=== PATIENT | male | born 1965 | race Caucasian/White ===

== ENCOUNTER → 2021-09-19 | Outpatient (CLI) | payer BC ==
[2021-09-19 08:24] VITALS: BP 136/84; PULSE 71; RESP 18; TEMP 98.2
--- NOTE | 2021-09-19 08:33 | P.CON ---
Consult Note - . Consult date: 09/19/21 Assessment/Plan:: HISTORY OF PRESENT ILLNESS: 56 year old male as a for referral from Dr Keating with lumbar pain due to degenerative disc disease, disc bulges, spinal stenosis and facet arthropathy presents today for a pain evaluation. Patient states that his pain is primarily in his lower lumbar spine and tailbone area 6 out of 10 in intensity but with activity elevates to 8 out of 10 intensity with radiation of pain to the buttocks bilaterally and alternating left lower extremity and right lower extremity. Patient states he has had lower lumbar pain for years, and that it feels like a dull achy tight pressure type of pain in his lower lumbar spine. It is provoked with bending lifting. It is alleviated with medications, topical, injections, ice, heat, physical therapy 3 years ago, chiropractic treatments, massage therapy, repositioning and rest. PMH: Asthma PSH: Dozens of epidurals and facet blocks medial branches over the years at Dr. Lloyd's office and [facility], right carpal tunnel release, right biceps tendon repair, rhinoplasty with SMR SH: Negative 3 FH: Noncontributory All: NKDA Meds: Celebrex, Robaxin, Biofreeze gel REVIEW OF ORGAN SYSTEMS: CONSTITUTIONAL: No fevers or chills. No recent weight loss. HEENT: No visual acuity loss, eye pain, difficulties with hearing. No nosebleeds. No difficulty swallowing. RESPIRATORY: Denies any troubles with breathing or dyspnea on exertion. CARDIOVASCULAR: Denies any chest pain, palpitations, or recent heart attacks. GASTROINTESTINAL: Denies fatty food intolerance. Has change in bowel habits and gas bloat. GENITOURINARY: Denies any blood in urine. Has increased urinary frequency. NEUROLOGICAL: + numbness and tingling along the distal extremities. No seizure disorders or headaches. MUSCULOSKELETAL: + back pain SKIN: No skin cancer. No rash. PSYCHIATRIC: Denies current depression or suicidal thoughts. ENDOCRINE: Denies current thyroid disorders. Denies any blood sugar glucose intolerance. HEME/LYMPHATIC: Denies any lumps and bumps around the neck. History of deep venous thrombosis. ALLERGY/IMMUNOLOGY: No immunoglobulin therapy. No immune deficiencies. BREAST: Denies current breast lumps, pain or nipple discharge. Physical Examinations : Constitutional : Cooperative , not in acute distress . HEENT: Neck supple. No Lymphadenopathy. Normal thyroid size . Eyes no ptosis , no icterus, no photophobia . Hearing intact. Normal oropharynx. No Thrush. Respiratory : Chest clear to auscultations bilaterally. No wheezing. No rhonchi. Cardiovascular : Regular rate and rhythm , S1 / S2. No S3 . No S4. Gastrointestinal : Abdomen soft. No tenderness. Bowel sounds x 4. No organomegaly . Genitourinary : Deferred. Neurologic : Cranial nerve II to XII intact. No focal neurological deficits. Psychiatric : alert & oriented x 3. Matching mood & appropriate affect. Judgment & insight intact. Lymphatic No Lymphadenopathy. Musculoskeletal : Cervical Spine Motor strength in the deltoid and biceps: Normal right side. Normal Left side Motor strength biceps and the wrist extensors: Normal right side . Normal left side Motor strength in the triceps muscle: Normal right side. Normal left side Deep tendon reflexes: Normal at the biceps. Normal at Brachioradialis. Normal at triceps Cervical facet loading test: positive bilaterally Spurling test: positive bilaterally Neck distraction test: positive bilaterally Liliya sign: positive bilaterally Lumbar spine Motor strength lower extremities ,thigh and legs 5/5 Right side , 5/5 Left side Deep tendon reflexes : Normal Knee Jerk. Normal Ankle Jerk Lumbar facet Loading Test: positive Right / positive Left over L2-S1 bilaterally Range of motion of the lumbar spine Flexion <90 degrees, extension 10 degrees Straight Leg Raise test: Left/ Right positive at 30 degree Dominga test: positive right / positive left. Moderate tenderness over the Sacroiliac joint on the Right / Left sides Gaenslen test: positive bilaterally Seated flexion test: positive bilaterally. Assessment/ Plan : Recommendation bilateral L3 - L5 RFA Due to the extensive degenerative disc disease spinal stenosis and facet arthropathy, patient may benefit from RFA of higher sites along the lumbar spine for sufficient pain relief Risks benefits of procedure discussed and patient verbalized understanding Denies aspirin or anticoagulant use All questions answered I have spent greater than 50 minutes on patient care today. Dr Muñoz was available by phone for the evaluation of this patient. The time was used to review the medical records including relevant urine studies and Prescription history (MAPs), review of the available imaging, evaluation and examination of the patient, coordination of care with the medical staff and if applicable referring physicians, as well as creation of the medical record PQRS Measure Charge Sheet Mode of Arrival: Ambulatory - Pain Location Lower Back Non-Pharmacological Interventions: Chiropractic Treatment, Heat, Ice, Inactivity, Massage, Physical Therapy, Position/Reposition, Stretching Pharmacological Interventions: PRN Medication, Topical Medication PQRS Narrative: Blood Pressure 136/84 Pain Intensity [Lower Back] 6 Scale Used Numeric (1 - 10) Hx Alcohol Use (MH) No Home Medications: Ambulatory Orders Celecoxib [CeleBREX] 200 mg PO BID 09/11/21
== END ==
LOC: PNWHC3 07:24
PROVIDERS: ATTEND Physician Assistant Medical
DX: M51.36 Other intervertebral disc degeneration, lumbar region (principal); M51.26 Other intervertebral disc displacement, lumbar region; M48.061 Spinal stenosis, lumbar region without neurogenic claudication; J45.909 Unspecified asthma, uncomplicated
CPT/HCPCS: 99211

== ENCOUNTER 2021-11-29 06:31 | Day surgery (SDC) | payer BC ==
[2021-11-28 10:30] VITALS: BMI 30.8
[~2021-11-29 06:31] MED LIST: LIDOCAINE 1% (10MG/ML) FOR IV START INTRADERMA PRN
[2021-11-29 06:56] VITALS: TEMP 97.7
[2021-11-29] MEDS: LACTATED RINGERS 1,000 ML IV SCH ×2 (07:04→08:00)
[2021-11-29] MEDS ORDERED: LACTATED RINGERS 1,000 ML IV ONE (07:21)
[2021-11-29] MEDS ORDERED: fentaNYL (PF) 50 MCG/ML 2 ML AMP ONE (07:23)
[2021-11-29] MEDS ORDERED: methylPREDNISolone ACETATE 40 MG/ML 1 ML VIAL ONE (07:23)
[2021-11-29] MEDS ORDERED: MIDAZOLAM 2 MG/2 ML VIAL ONE (07:23)
[2021-11-29] MEDS ORDERED: ROPIVACAINE 5MG/ML 20ML VIAL ONE (07:23)
--- NOTE | 2021-11-29 07:55 | P.PCN ---
Date of Procedure: 11/29/21 Procedure(s) Performed: PREOPERATIVE DIAGNOSIS: 1-Lumbar Spondylosis with Facet Arthropathy without myelopathy. 2- Lumber degenerative disc disease. POSTOPERATIVE DIAGNOSIS: 1- Lumbar Spondylosis with Facet Arthropathy without myelopathy. 2- Lumber degenerative disc disease. PROCEDURES : Bilateral Radiofrequency thermocoagulation, L3 , L4 , and L5 medial branch, with fluoroscopic guidance (fluoroscopy images available in the radiology department) ( to denervate the facet joint at bilateral L4-5 ,and L5-S1 levels ). ANESTHESIA: Monitored anesthesia care as per anesthesia department . EBL: Minimal PROCEDURE INDICATION: The patient with low back pain secondary to lumbar facet arthropathy who had more than 50% relief of her pain with previous diagnostic lumbar medial branch block with bupivacaine. PROCEDURE DESCRIPTION / TECHNIQUE: The patient was seen and identified in the preoperative area. Risks, benefits, complications, including but not limited to risk of infection ,bleeding , allergic reactions to the medications and no complete pain releife , and alternatives were discussed with the patient, the patient agreed to proceed with the procedure and signed the consent. IV was started. Vital signs remained stable throughout the procedure. Patient was taken to the OR and time out was completed. The patient was placed in the prone position on the procedure table. The lumber area was prepped and draped in the usual sterile fashion. . Vital signs were closely monitored during the procedure .IV sedation was used during the procedure to decrease patients anxiety. Using AP and then oblique fluoroscopy, the ``eye of the Paulino dog vanessa esponding to the connection between the superior and transverse articular processes of right L3, L4, and L5 were identified, marked, and localized with 1% lidocaine. Subsequently, a 18 -ue radiofrequency cannula with a 10- mm active tip was advanced guided by fluoroscopy to each of the``eyes of the Paulino dog at right L3, L4, and L5. Each site then underwent sensory testing at 50 Hz and 0 to 1 volt and motor testing at 2.5 Hz and 0 to 3 volt with local stimulation, but no radicular symptoms down the legs. Thereafter each sites underwent radiofrequency thermocoagulation at 80 degrees celsius for 90 seconds after injecting 0.5 ml of PF Ropivacaine 1ml, then after the thermocoagulation done , 1 ml of the block solution containing Depo-Medrol 20 mg and 3 ml of Ropivacaine 0.5% was injected at the right L3 , L4 , and L5 , levels after negative aspiration of CSF and blood and with no paresthesias. Cannulas were retracted while injecting lidocaine 1% until the needle is out. The same procedure was repeated at the level of Left L3, L4, and L5 levels. At the end of the procedure, the skin was cleansed and bandages were applied. COMPLICATIONS: No acute complications. DISPOSITION / PLANS: The patient was placed in a supine position and transferred to the recovery area in a stable condition for observation and was discharged from the recovery room after meeting discharge criteria. Home discharge instructions given to the patient by the staff. The patient was reexamined prior to discharge. The patient will schedule a follow up in the clinic in 2-4 weeks.
[2021-11-29] MEDS ORDERED: IV FLUID CONTINUATION 1,000 ML IV ONE (08:00)
[2021-11-29 08:03] VITALS: RESP 16
--- NOTE | 2021-11-29 08:03 | FL ---
EXAMINATION TYPE: FL guided pain mgmt statistic DATE OF EXAM: 11/29/2021 CLINICAL HISTORY: Low back pain. TECHNIQUE: Fluoroscopy. COMPARISON: None. FINDINGS: Fluoroscopic guidance was provided during pain relief procedure performed by Dr. Muñoz . A total of 20 seconds of fluoroscopic time was utilized during the procedure and 6 spot images are acquired. Images acquired shows needle localization at several levels in the lower lumbar spine. IMPRESSION: As Above.
[2021-11-29 08:15] VITALS: BP 117/84; PULSE 66
== END 2021-11-29 08:30 | disposition home or self-care (01) ==
LOC: ORPAIN 06:31
PROVIDERS: ATTEND Specialist
DX: M47.816 Spondylosis without myelopathy or radiculopathy, lumbar region (principal); M51.36 Other intervertebral disc degeneration, lumbar region
CPT/HCPCS: 64635; 64636; J2250; J1030; J3010; J2795

== ENCOUNTER → 2021-12-16 | Outpatient (CLI) | payer BC ==
[2021-12-16 07:54] VITALS: BP 121/80; PULSE 76; RESP 18
--- NOTE | 2021-12-16 07:57 | P.PN ---
Subjective Progress Note Date: 12/16/21 Principal diagnosis: A 56 yr old male with a history of severe and chronic low back pain secondary to lumbar degenerative disc diseases and lumbar spondylosis with facet arthropathy presents today for evaluation status post bilateral RFA L4-L5, L5- S1. Pt states he experienced 75% pain relief status post procedure and no longer has any lower extremity shooting pain. Pain level is currently at etc. out of 10 in intensity, sharp achy pain in the mid to lower aspects of his l umbar spine but occasionally elevates to 9 out of 10 in intensity with standing for periods of 30 minutes, laying or inactivity. Pain is alleviated with medications, topicals, injections, physical therapy in 2019, chiropractic treatments in 2020 which provided no relief, daily home stretching regimen, massage therapy in the past which provided temporary relief and rest. Interventional pain procedures completed include bilateral RFA L3-5 Patient is currently on Celebrex from Dr. Keating Patient denies any side effects of the medication(s), denies excessive drowsiness or sleepiness, denies suicidal ideation and reports that the current pain medication is helping to control the pain and improve activities of daily living. Patient denies any motor or sensory deficits. Patient denies any fever or night sweats, denies any change in the bowel movements or urination. Physical Examination: -Constitutional: Cooperative. Not in acute distress . -HEENT: Neck is supple. No lymphadenopathy. No thyromegaly. Normal thyroid size. Eyes: No ptosis , no icterus, no photophobia. ENT: No auditory deficits. Normal oropharynx. No Thrush. - Respiratory: Chest clear to auscultations bilaterally. No wheezing. No rhonchi. - Cardiovascular: Regular rate and rhythm. S1 / S2 , no S3 , no S4. - Gastrointestinal: Abdomen soft no tenderness. Bowel sounds positive in all four quadrants. No organomegaly. - Genitourinary: Deferred. - Neurologic: Cranial nerve II to XII intact. No focal neurological deficits. - Psychatric: Alert & oriented x 3. Matching mood & appropriate affect. Judgment and insight intact. - Lymphatic: No Lymphadenopathy. - Musculoskeletal: Cervical spine: Muscle bulk/ tone/ strength in the bilateral upper extremities normal. Facet loading test cervical area positive. Lumbar spine: Motor bulk/ tone/ strength lower extremities , thigh and legs : 5/5 Deep tendon reflexes : Normal Knee Jerk. Normal Ankle Jerk . Vertebral body tenderness to palpation over L4 Lumbar Facet Loading Test positive Straight Leg Raise: positive at 30 degrees right side/ left side Gaenslen's Test positive Sacral spine : Severe tenderness over the Sacroiliac joint: right side / left side Range of motion: Flexion of the lumbar spine <60 degrees Range of motion: Extension of the lumbar spine <20 degrees Gaenslen's Test positive Dominga test: positive right side / left side Assessment and plan: Chronic low back pain secondary to lumbar degenerative disc disease , lumbar spondylosis with facet arthropathy without myelopathy Recommendation of IRMA L4-L5 #1. May need a series of injections, up to 3 within a six-month period, for optimal pain relief. Risks, benefits of procedure discussed and patient verbalized understanding. Denies anticoagulant use or medical history of diabetes. All patient questions answered MAPS reviewed and it was appropriate. I have spent 31 minutes on patient care today. Dr Muñoz was available by phone for the evaluation of this patient. The time was used to review the medical records including relevant urine studies and Prescription history (MAPs), review of the available imaging, evaluation and examination of the patient, coordination of care with the medical staff and if applicable referring physicians, as well as creation of the medical record Objective - Vital Signs Vital signs: Vital Signs Temp Pulse 76 12/16/21 07:48 Resp 18 12/16/21 07:48 BP 121/80 12/16/21 07:48 Pulse Ox 93 L 12/16/21 07:48 PQRS Measure Charge Sheet Mode of Arrival: Ambulatory - Pain Location Lower Back Non-Pharmacological Interventions: Chiropractic Treatment, Exercise, Home Exercise, Massage, Physical Therapy, Position/Reposition, Stretching Pharmacological Interventions: Block, PRN Medication PQRS Narrative: Blood Pressure 121/80 Pain Intensity [Lower Back] 6 Scale Used Numeric (1 - 10) Hx Alcohol Use (MH) No Home Medications: Ambulatory Orders Celecoxib [CeleBREX] 200 mg PO BID PRN 09/11/21
== END ==
LOC: PNWHC3 07:32
PROVIDERS: ATTEND Specialist
DX: M51.36 Other intervertebral disc degeneration, lumbar region (principal); M47.816 Spondylosis without myelopathy or radiculopathy, lumbar region; G89.29 Other chronic pain
CPT/HCPCS: 99211

== ENCOUNTER 2022-01-14 05:56 | Day surgery (SDC) | payer BC ==
[2022-01-10 11:44] VITALS: BMI 32.4
[2022-01-14] MEDS ORDERED: LIDOCAINE 1% (10MG/ML) FOR IV START INTRADERMA PRN (06:04)
[2022-01-14] MEDS ORDERED: LACTATED RINGERS 1,000 ML IV SCH (06:04)
[2022-01-14 06:24] VITALS: RESP 18; TEMP 97.5
[2022-01-14] MEDS ORDERED: LACTATED RINGERS 1,000 ML IV ONE (06:24)
[2022-01-14] MEDS ORDERED: IOPAMIDOL M200 10 ML VIAL ONE (07:02)
[2022-01-14] MEDS ORDERED: methylPREDNISolone ACETATE 80 MG/ML 1 ML VIAL ONE (07:02)
[2022-01-14] MEDS ORDERED: fentaNYL (PF) 50 MCG/ML 2 ML AMP ONE (07:02)
[2022-01-14] MEDS ORDERED: MIDAZOLAM 2 MG/2 ML VIAL ONE (07:02)
--- NOTE | 2022-01-14 07:22 | P.PCN ---
Date of Procedure: 01/14/22 Procedure(s) Performed: PREOPERATIVE DIAGNOSIS: 1- Lumbar Degenerative Disc Diseases 2-Lumbar spondylosis with Facet arthropathy without myelopathy POSTOPERATIVE DIAGNOSIS: Same as preop diagnosis. PROCEDURE 1. Lumbar epidural steroid injection under fluoroscopic guidance at the L5-S1 level. (Fluoroscopy imaging was available in radiology department) 2. Lumbar epidurogram. ANESTHESIA: Local with 1% lidocaine 3 ml and , moderate sedation with intravenous Versed 2 mg ,and fentanyle 100 Mcg EBL: Minimal PROCEDURE INDICATION: The patient with low back pain and radiculitis symptoms unresponsive to conservative treatment. Fluoroscopy was used to optimize visuali zation of the needle placement and to maximize safety. PROCEDURE DESCRIPTION / TECHNIQUE: The patient was seen and identified in the preoperative area. Risks, benefits, complications including but not limited to infections ,bleeding ,allergic reaction to the medications ,nerve damage and not complete pain releife , and alternatives were discussed with the patient. The patient agreed to proceed with the procedure and signed the consent. IV was started, and vital signs were stable. Patient was taken to the OR and time out was completed. The patient was placed in the prone position on procedure table and a pillow was placed under the abdomen to reduce lumbar lordosis. The lumbosacral area was prepped and draped in the usual sterile fashion.ere closely monitored during the procedure. Conscious sedation was used during the procedure to decrease patients anxiety. Vital signs was monitered during the entire procedure. Using anterior-posterior fluoroscopy, the L5-S1 interlaminar space was identified and the skin over this site was marked and then infiltrated with 1% lidocaine subcutaneously. Subsequently, a 18-gauge Tuohy epidural needle was inserted and advanced toward the epidural space using the ``Loss of resistance technique and guided by AP and lateral fluoroscopy. The correct needle position in the epidural space was verified with the injection of 2 mL of the water latricia uble contrast dye Isovue 200 contrast and observing an excellent epidurogram with the epidural spread of the dye, after negative aspiration for blood and CSF and in the absence of paresthesias. Again after negative aspiration, a 6 ml mixture containing 80 mg of Depo-medrol , and 2 ml of preservative free Normal Saline, and 2 ml of preservative free lidocaine 1% solution was injected and a washout of epidurogram was seen. Needle was withdrawn intact, skin was cleansed, and bandages were applied. COMPLICATIONS: None DISPOSITION / PLANS: The patient was placed in a supine position and transferred to the recovery area in a stable condition for observation. There was no evidence of lower extremity motor or sensory deficit after the procedure. Patient was discharged from the recovery room after meeting discharge criteria. Home discharge instructions were given to the patient by the staff. The patient was reexamined prior to discharge. The patient will schedule a follow up in the clinic in 2-4 weeks. note= multiple attempts done with the procedure at L4 5 was not successful, he could not get loss of resistance at L4 5, for this reason the procedure was changed to L5-S1 levels, the epidural space at L4 5 was not accessible
[2022-01-14] MEDS ORDERED: IV FLUID CONTINUATION 1,000 ML IV ONE (07:25)
--- NOTE | 2022-01-14 07:30 | FL ---
EXAMINATION TYPE: FL guided pain mgmt statistic DATE OF EXAM: 01/14/2022 FLUOROSCOPY Fluoroscopy time of 17 seconds was used during lumbar epidural steroid injection. 2 image/s document /s the procedure.
[2022-01-14 07:49] VITALS: BP 119/83; PULSE 64
== END 2022-01-14 07:59 | disposition home or self-care (01) ==
LOC: ORPAIN 05:56
PROVIDERS: ATTEND Specialist
DX: M47.816 Spondylosis without myelopathy or radiculopathy, lumbar region (principal)
CPT/HCPCS: 62323; J2250; J1040; J3010; Q9966; 99152

== ENCOUNTER 2022-02-18 06:33 | Day surgery (SDC) | payer BC ==
[2022-02-12 15:32] VITALS: BMI 31.5
[~2022-02-18 06:33] MED LIST changes: +LACTATED RINGERS 1,000 ML IV SCH; -LIDOCAINE 1% (10MG/ML) FOR IV START INTRADERMA PRN
[2022-02-18 06:49] VITALS: TEMP 98
[2022-02-18] MEDS ORDERED: MIDAZOLAM 2 MG/2 ML VIAL ONE (07:32)
[2022-02-18] MEDS ORDERED: IOPAMIDOL M200 10 ML VIAL ONE (07:32)
[2022-02-18] MEDS ORDERED: fentaNYL (PF) 50 MCG/ML 2 ML AMP ONE (07:32)
[2022-02-18] MEDS ORDERED: TRIAMCINOLONE ACETONIDE 40 MG/ML 1 ML VIAL ONE (07:32)
[2022-02-18] MEDS ORDERED: ROPIVACAINE 5MG/ML 20ML VIAL ONE (07:32)
--- NOTE | 2022-02-18 07:49 | P.PCN ---
Date of Procedure: 02/18/22 Surgeon: Meg Lambert Pathology: none sent Condition: stable Disposition: PACU Description of Procedure: PREOPERATIVE DIAGNOSIS: 1-Lumbar radiculopathy 2- Lumber Degenerative Disc Diseases. POSTOPERATIVE DIAGNOSIS: 1-Lumbar radiculopathy. 2-Lumbar Degenerative Disc Diseases PROCEDURE 1. Lumbar epidural steroid injection under fluoroscopic guidance at the L5-S1 level. 2. Lumbar epidurogram. ANESTHESIA: Local with 1% lidocaine; and IV moderate conscious sedation with Versed and fentanyl EBL: Minimal PROCEDURE INDICATION: The patient with low back pain and radiculitis symptoms unresponsive to conservative treatment. Fluoroscopy was used to optimize visualization of the needle placement and to maximize safety. PROCEDURE DESCRIPTION / TECHNIQUE: The patient was seen and identified in the preoperative area. Risks, benefits, complications including but not limited to infections ,bleeding ,allergic reaction to the medications ,nerve damage and not complete pain relief , and alt ernatives were discussed with the patient. The patient agreed to proceed with the procedure and signed the consent. IV was started, and vital signs were stable. Patient was taken to the OR and time out was completed. The patient was placed in the prone position on procedure table and a pillow was placed under the abdomen to reduce lumbar lordosis. The lumbosacral area was prepped and draped in the usual sterile fashion with ChloraPrep.Patient was closely monitored during the procedure. Conscious sedation was used during the procedure to decrease patients anxiety. Vital signs were monitered during the entire procedure. Using anterior-posterior fluoroscopy, the L4-5 interlaminar space was identified and the skin over this site was marked and then infiltrated with 1% lidocaine subcutaneously. Subsequently, a 20-gauge Tuohy epidural needle was inserted and advanced toward the epidural space using the Loss of resistance to air technique and guided by AP and lateral fluoroscopy. The correct needle position in the epidural space was verified with the injection of 1 mL of the water soluble contrast dye Omnipaque 180 contrast and observing an excellent epidurogram with the epidural spread of the dye, after negative aspiration for blood and CSF and in the absence of paresthesias. Again after negative aspiration, a 8 ml mixture containing 40 mg of Kenalog and 5 ml of preservative free Normal Saline, and 2 ml of preservative free Ropivacaine 0.5% solution was injected and a washout of epidurogram was seen. Needle was withdrawn intact, skin was cleansed, and bandages were applied. patient tolerated procedure well and was transferred to PACU in stable condition.A copy of the needle placement picture was saved to the fluoroscopy machine. COMPLICATIONS: None
[2022-02-18] MEDS ORDERED: IV FLUID CONTINUATION 800 ML IV ONE (07:50)
[2022-02-18] MEDS ORDERED: LACTATED RINGERS 1,000 ML IV ONE (07:50)
[2022-02-18 07:55] VITALS: PULSE 68; RESP 16
[2022-02-18 08:10] VITALS: BP 116/63
--- NOTE | 2022-02-18 09:15 | FL ---
EXAMINATION TYPE: FL guided pain mgmt statistic DATE OF EXAM: 02/18/2022 FLUOROSCOPY Fluoroscopy time of the seconds was used during back pain, lumbar spine pain intervention procedure. 0 image/s document/s the procedure.
== END 2022-02-18 08:20 | disposition home or self-care (01) ==
LOC: ORPAIN 06:33
PROVIDERS: ATTEND Anesthesiology
DX: M51.16 Intervertebral disc disorders with radiculopathy, lumbar region (principal)
CPT/HCPCS: 62323; J2250; J3301; J3010; Q9966; J2795; 99152

== ENCOUNTER → 2022-03-06 | Outpatient (CLI) | payer BC ==
[2022-03-06 08:46] VITALS: BP 131/83; PULSE 69; RESP 18; TEMP 98.2
--- NOTE | 2022-03-06 08:49 | P.PAINPG ---
PQRS Measure Charge Sheet Comment: A 57 yr old male with a history of severe and chronic low back pain secondary to lumbar degenerative disc diseases and lumbar spondylosis with facet arthropathy presents today for evaluation s/p LESI L5-S1. He states he experienced 20% pain relief x 14 days s/p procedure. Pain level is currently at 5/10 in intensity, constant, dull/ achy in the lower aspects of the lumbar spine with radiation of pain down the BLEs. Pain is provoked as high as 9/10 in intensity w inactivity. Pain is alleviated with medications (Celebrex, Robaxin), injections, PT in 2019, chiropractic she was in the past, home stretching regimen, repositioning and rest. Interventional pain procedures completed include BL RFA L3-L5, LESI L4-L5, L5-S1 Patient is currently on Celebrex, Robaxin Patient denies any side effects of the medication(s), denies excessive drowsiness or sleepiness, denies suicidal ideation and reports that the current pain medication is helping to control the pain and improve activities of daily living. Patient denies any motor or sensory deficits. Patient denies any fever or night sweats, denies any change in the bowel movements or urination. Physical Examination: -Constitutional: Cooperative. Not in acute distress . - Neurologic: Cranial nerve II to XII intact. No focal neurological deficits. - Psychatric: Alert & oriented x 3. Matching mood & appropriate affect. Judgment and insight intact. - Musculoskeletal: Cervical spine: Muscle bulk/ tone/ strength in the bilateral upper extremities normal Vertebral body tenderness to palpation over Spurling test positive Distraction test positive Facet loading test positive Thoracic spine Muscle bulk / tone/ strength in the bilateral paraspinal muscles normal Vertebral body tender to palpation over Facet loading test positive Lumbar spine: Motor bulk/ tone/ strength lower extremities , thigh and legs : 5/5 Deep tendon reflexes : Normal Knee Jerk. Normal Ankle Jerk . Vertebral body tenderness to palpation over L4, L5 Lumbar Facet Loading Test positive Straight Leg Raise: positive at 30 degrees right side/ left side Gaenslen's Test positive Sacral spine : Severe tenderness over the Sacroiliac joint: right side / left side Range of motion: Flexion of the lumbar spine <60 degrees Range of motion: Extension of the lumbar spine <20 degrees Gaenslen's Test positive Caleb's Test positive Dominga test: positive right side / left side Thigh Thrust Test Sacral Thrust Test Assessment and plan: Chronic low back pain secondary to lumbar degenerative disc disease , lumbar spondylosis with facet arthropathy without myelopathy Recommendation of SUSHILI L4-L5 #2. May be a series of injections, up to 4 within a one-year period, for optimal pain relief. Risks, benefits of procedure discussed and pt verbalized understanding. Denies anticoagulant use or medical history of diabetes. All patient questions answered MAPS reviewed and it was appropriate. I have spent less than 30 minutes on patient care today. Dr Muñoz was available by phone for the evaluation of this patient. The time was used to review the medical records including relevant urine studies and Prescription history (MAPs), review of the available imaging, evaluation and examination of the patient, coordination of care with the medical staff and if applicable referring physicians, as well as creation of the medical record PQRS Narrative: Hx Alcohol Use (MH) No Home Medications: Ambulatory Orders Celecoxib [CeleBREX] 200 mg PO BID PRN 09/11/21 Controlled Substance Measures - Controlled Substance Measures Is patient prescribed a controlled substance at discharge?: No
== END ==
LOC: PNWHC3 07:56
PROVIDERS: ATTEND Specialist
DX: M51.36 Other intervertebral disc degeneration, lumbar region (principal); M47.816 Spondylosis without myelopathy or radiculopathy, lumbar region; G89.29 Other chronic pain
CPT/HCPCS: 99211

== ENCOUNTER 2022-04-17 06:58 | Day surgery (SDC) | payer BC ==
[2022-04-16 13:05] VITALS: BMI 31.5
[~2022-04-17 06:58] MED LIST changes: +LIDOCAINE 1% (10MG/ML) FOR IV START INTRADERMA PRN
[2022-04-17 07:32] VITALS: TEMP 97
[2022-04-17] MEDS ORDERED: IOPAMIDOL M200 10 ML VIAL ONE (07:48)
[2022-04-17] MEDS ORDERED: methylPREDNISolone ACETATE 80 MG/ML 1 ML VIAL ONE (07:48)
[2022-04-17] MEDS ORDERED: LACTATED RINGERS 1,000 ML IV SCH (08:15)
--- NOTE | 2022-04-17 08:17 | P.PCN ---
Date of Procedure: 04/17/22 Description of Procedure: Procedure: 1. L4-L5 Epidural steroid injection under fluoroscopic guidance #2 out of 3, 2. Lumbar epidurogram PREOPERATIVE DIAGNOSIS: Lumbar degenerative disc disease, and Lumbar radiculopathy. POSTOPERATIVE DIAGNOSIS: Lumbar degenerative disc disease, and Lumbar rad iculopathy. SURGEON: Portia Santillan ANESTHESIA: Local with 1% lidocaine, and IV sedation : None EBL: None. Specimen removed: None Fluoroscopic image: saved to electronic medical records PROCEDURE INDICATION: The patient had history of Lumbar degenerative disc disease and Lumbar radiculopathy. Failed to conservative therapy. Presented for epidural steroid injection. PROCEDURE DESCRIPTION: The patient was seen and identified in the preoperative area. Risks, benefits, complications, and alternatives were discussed with the patient. The patient agreed to proceed with the procedure and signed the consent. IV was started, and vital signs were stable. Patient was taken to the procedure area, and time out was completed. The patient was placed in the prone position on procedure table and a pillow was placed under the abdomen to reduce lumbar lordosis. The lumbosacral area was prepped and draped in the usual sterile fashion. Critical pause was taken. Vital signs were closely monitored during the procedure. Using anterior-posterior fluoroscopy, the L4-L5 interlaminar space was identified, and skin and deeper tissues were localized with 1% lidocaine. Using anterior-posterior fluoroscopy, lateral fluoroscopy, and ddra-kb-tiwjxcfuiw technique, a 20 gauge 3.5 Tuohy epidural needle entered the epidural space. After negative aspiration of CSF and blood with no paresthesias, 2 ml of [id number] contrast dye was injected and an excellent epidurogram was seen. Again after negative aspiration of CSF and blood with no paresthesias, 10 mL of block solution was injected into the epidural space. Block solution contained 80 mg of Depo-Medrol, and 9 mL of preservative-free normal saline. Needle was withdrawn intact, skin was cleansed, and bandages were applied. COMPLICATIONS: None. DISPOSITION / PLANS: The patient was placed in a supine position and transferred to the recovery area in a stable condition for observation. Patient was discharged from the recovery room after meeting discharge criteria. Home discharge instructions given to the patient by the staff. The patient was reexamined prior to discharge. The patient will schedule a follow up in the clinic in 4 weeks.
[2022-04-17 08:22] VITALS: RESP 15
[2022-04-17 08:35] VITALS: BP 124/88; PULSE 60
--- NOTE | 2022-04-17 08:39 | FL ---
EXAMINATION TYPE: FL guided pain mgmt statistic DATE OF EXAM: 04/17/2022 CLINICAL HISTORY: Low back pain. TECHNIQUE: Fluoroscopy. COMPARISON: None. FINDINGS: Fluoroscopic guidance was provided during pain relief procedure performed by Dr. Muñoz . A total of 19.2 seconds of fluoroscopic time was utilized during the procedure and 3 spot images a re acquired. Images acquired shows needle localization in the lower lumbar spine. IMPRESSION: As Above.
== END 2022-04-17 08:48 | disposition home or self-care (01) ==
LOC: ORPAIN 06:58
DX: M51.16 Intervertebral disc disorders with radiculopathy, lumbar region (principal); M19.90 Unspecified osteoarthritis, unspecified site; Z79.899 Other long term (current) drug therapy
CPT/HCPCS: 62323; J1040; J2001; Q9966; 99152; 99153

== ENCOUNTER → 2022-05-12 | Outpatient (CLI) | payer BC ==
[2022-05-12 08:16] VITALS: BP 122/84; PULSE 68; RESP 18
--- NOTE | 2022-05-12 14:21 | P.PAINPG ---
Objective - Vital Signs Vital signs: Intake & Output 05/11/22 05/12/22 05/12/22 18:59 06:59 18:59 Weight 99.79 kg PQRS Measure Charge Sheet Comment: A 57 yr old male with a history of severe and chronic low back pain secondary to lumbar degenerative disc diseases and lumbar spondylosis with facet arthropathy without myelopathy presents today for RUCHI L4-L5 #3. Pt states he experienced 85% pain relief x 3 wks s/p procedure. Pain level is currently at 7 /10 in intensity, constant, localized in the lower lumbar spine, dull/ achy without radiation. Pain is provoked by being in one position for periods of 30 min or more. Pain is alleviated with PT 3 yrs ago, home guided exercises, chiropractic treatments every 2 wks 1 yr ago, heat, ice, meds (Celebrex, Biofreeze), sitting, walking, repositioning and rest. Interventional pain procedures completed include RUCHI L4-L5 x2, BL RFA L3-L5. Patient is currently on Celebrex, Biofreeze gel. Patient denies any side effects of the medication(s), denies excessive drowsiness or sleepiness, denies suicidal ideation and reports that the current pain medication is helping to control the pain and improve activities of daily living. Patient denies any motor or sensory deficits. Patient denies any fever or night sweats, denies any change in the bowel movements or urination. Physical Examination: -Constitutional: Cooperative. Not in acute distress . - Neurologic: Cranial nerve II to XII intact. No focal neurological deficits. - Psychatric: Alert & oriented x 3. Matching mood & appropriate affect. Judgment and insight intact. - Musculoskeletal: Cervical spine: Muscle bulk/ tone/ strength in the bilateral upper extremities normal Vertebral body tenderness to palpation over Spurling test positive Distraction test positive Facet loading test positive Thoracic spine Muscle bulk / tone/ strength in the bilateral paraspinal muscles normal Vertebral body tender to palpation over Facet loading test positive Lumbar spine: Motor bulk/ tone/ strength lower extremities , thigh and legs : 5/5 Deep tendon reflexes : Normal Knee Jerk. Normal Ankle Jerk . Vertebral body tenderness to palpation over Lumbar Facet Loading Test positive w paraspinal/ facet tenderness over BL L4-L5, L5-S1 Straight Leg Raise: positive at 30 degrees right side/ left side Gaenslen's Test positive Sacral spine : Severe tenderness over the Sacroiliac joint: right side / left side Range of motion: Flexion of the lumbar spine <60 degrees Range of motion: Extension of the lumbar spine <20 degrees Gaenslen's Test positive Caleb's Test positive Dominga test: positive right side / left side Thigh Thrust Test Sacral Thrust Test Assessment and plan: Chronic low back pain secondary to lumbar degenerative disc disease , lumbar spondylosis with facet arthropathy without myelopathy Recommendation of BL RFA L4-L5, L5-S1. Pt exhibited substantial pain relief w prior procedure. Risks, benefits of procedure discussed and pt verbalized understanding. Denies anticoagulant use or medical history of diabetes. All patient questions answered MAPS reviewed and it was appropriate. I have spent less than 30 minutes on patient care today. Dr Muñoz was available by phone for the evaluation of this patient. The time was used to review the medical records including relevant urine studies and Prescription history (MAPs), review of the available imaging, evaluation and examination of the patient, coordination of care with the medical staff and if applicable referring physicians, as well as creation of the medical record - Pain Location Bilateral Lower Back Non-Pharmacological Interventions: Chiropractic Treatment, Heat, Ice, Physical Therapy, Standing Pharmacological Interventions: Block, Epidural, PRN Medication, Topical Medication PQRS Narrative: Hx Alcohol Use (MH) No Home Medications: Ambulatory Orders Celecoxib [CeleBREX] 200 mg PO BID PRN 09/11/21 Controlled Substance Measures - Controlled Substance Measures Is patient prescribed a controlled substance at discharge?: No
== END ==
LOC: PNWHC3 07:50
PROVIDERS: ATTEND Specialist
DX: M51.36 Other intervertebral disc degeneration, lumbar region (principal); M47.816 Spondylosis without myelopathy or radiculopathy, lumbar region; G89.29 Other chronic pain
CPT/HCPCS: 99211

== ENCOUNTER 2022-06-20 06:09 | Day surgery (SDC) | payer BC ==
[2022-06-18 11:01] VITALS: BMI 31.5
[2022-06-20] MEDS ORDERED: LACTATED RINGERS 1,000 ML IV ONE ×2 (06:27)
[2022-06-20 06:38] VITALS: RESP 16; TEMP 98.5
[2022-06-20] MEDS ORDERED: MIDAZOLAM 2 MG/2 ML VIAL ONE (07:01)
[2022-06-20] MEDS ORDERED: methylPREDNISolone ACETATE 40 MG/ML 1 ML VIAL ONE (07:01)
[2022-06-20] MEDS ORDERED: ROPIVACAINE 5 MG/ML 20 ML AMPULE ONE (07:01)
[2022-06-20] MEDS ORDERED: fentaNYL (PF) 50 MCG/ML 2 ML AMP ONE (07:01)
--- NOTE | 2022-06-20 07:27 | P.PCN ---
Date of Procedure: 06/20/22 Procedure(s) Performed: PREOPERATIVE DIAGNOSIS: 1-Lumbar Spondylosis with Facet Arthropathy without myelopathy. 2- Lumber degenerative disc disease. POSTOPERATIVE DIAGNOSIS: 1- Lumbar Spondylosis with Facet Arthropathy without myelopathy. 2- Lumber degenerative disc disease. PROCEDURES : Bilateral Radiofrequency thermocoagulation, L3 , L4 , and L5 medial branch, with fluoroscopic guidance (fluoroscopy images available in the radiology department) ( to denervate the facet joint at bilateral L4-5 ,and L5-S1 levels ). ANESTHESIA: Monitored anesthesia care as per anesthesia department . EBL: Minimal PROCEDURE INDICATION: The patient with low back pain secondary to lumbar facet arthropathy who had more than 50% relief of her pain with previous diagnostic lumbar medial branch block with bupivacaine. PROCEDURE DESCRIPTION / TECHNIQUE: The patient was seen and identified in the preoperative area. Risks, benefits, complications, including but not limited to risk of infection ,bleeding , allergic reactions to the medications and no complete pain releife , and alternatives were discussed with the patient, the patient agreed to proceed with the procedure and signed the consent. IV was started. Vital signs remained stable throughout the procedure. Patient was taken to the OR and time out was completed. The patient was placed in the prone position on the procedure table. The lumber area was prepped and draped in the usual sterile fashion. . Vital signs were closely monitored during the procedure .IV sedation was used during the procedure to decrease patients anxiety. Using AP and then oblique fluoroscopy, the ``eye of the Paulino dog vanessa esponding to the connection between the superior and transverse articular processes of right L3, L4, and L5 were identified, marked, and localized with 1% lidocaine. Subsequently, a 18 [id number] radiofrequency cannula with a 10- mm active tip was advanced guided by fluoroscopy to each of the``eyes of the Paulino dog at right L3, L4, and L5. Each site then underwent sensory testing at 50 Hz and 0 to 1 volt and motor testing at 2.5 Hz and 0 to 3 volt with local stimulation, but no radicular symptoms down the legs. Thereafter each sites underwent radiofrequency thermocoagulation at 80 degrees celsius for 90 seconds after injecting 0.5 ml of PF Ropivacaine 1ml, then after the thermocoagulation done , 1 ml of the block solution containing Depo-Medrol 20 mg and 3 ml of Ropivacaine 0.5% was injected at the right L3 , L4 , and L5 , levels after negative aspiration of CSF and blood and with no paresthesias. Cannulas were retracted while injecting lidocaine 1% until the needle is out. The same procedure was repeated at the level of Left L3, L4, and L5 levels. At the end of the procedure, the skin was cleansed and bandages were applied. COMPLICATIONS: No acute complications. DISPOSITION / PLANS: The patient was placed in a supine position and transferred to the recovery area in a stable condition for observation and was discharged from the recovery room after meeting discharge criteria. Home discharge instructions given to the patient by the staff. The patient was reexamined prior to discharge. The patient will schedule a follow up in the clinic in 2-4 weeks.
[2022-06-20] MEDS ORDERED: IV FLUID CONTINUATION 800 ML IV ONE (07:31)
[2022-06-20 07:38] VITALS: PULSE 60
[2022-06-20] MEDS ORDERED: LIDOCAINE 1% (10MG/ML) FOR IV START INTRADERMA PRN (07:40)
[2022-06-20] MEDS ORDERED: LACTATED RINGERS 1,000 ML IV SCH (07:40)
[2022-06-20 07:53] VITALS: BP 106/69
--- NOTE | 2022-06-20 08:20 | FL ---
Intraoperative/procedural fluoroscopic services were provided. Total fluoroscopy time is 12 seconds w ith a total of 6 submitted images to PACS. Please see the operative/procedural note for further detai ls.
== END 2022-06-20 08:02 | disposition home or self-care (01) ==
LOC: ORPAIN 06:09
PROVIDERS: ATTEND Specialist
DX: M51.36 Other intervertebral disc degeneration, lumbar region (principal); M47.816 Spondylosis without myelopathy or radiculopathy, lumbar region; G89.29 Other chronic pain
CPT/HCPCS: 64635; 64636 ×2; J2250; J1030; J3010; J2795

== ENCOUNTER → 2022-07-09 | Outpatient (CLI) | payer BC ==
[2022-07-09 08:16] VITALS: BP 136/81; PULSE 51; RESP 18; TEMP 97.7
--- NOTE | 2022-07-09 08:21 | P.PN ---
Subjective Progress Note Date: 07/09/22 This is a follow-up visit for this 57 years old male with a chronic history of severe low back pain his diagnosed with lumbar spondylosis with lumbar facet arthropathy and lumbar degenerative disc disease, previously we have none are available to medial branch lumbar area at L4 5 and L5-S1, and also we have done lumbar epidural steroid injection, and currently on Celebrex 200 mg every morning, he denies any side effect of the medication, and he reported that he had significant improvement in his pain after the lumbar RFA which was done recently, he denies any motor or sensory deficit and he reported the current medication helped to improve his pain, he reports he can occasionally feel some aching pains radiating from the back to the right lower extremity, not persistent, Objective - Exam Physical Examinations : -Constitutiona : Cooperative , not in acute distress . -HEENT : nech : supple , no Lymphadenopathy , normal thyroid size . : eyes : no ptosis , no icterus, no photophobia . - neurologic : Cranial nerve II to XII intact , no focal neurological deffecit . -psychatric : alert , oriented X 3 , appropriate affect , i ntact judgment and insight . -Lymphatic : no Lymphadenopathy . - musculoskeltal : Lumber spine moter stegnth lower extremities ,thigh and legs 5/5 Right side , 5/5 Left side Assessment and Plan Plan: Assessment and plan= chronic low back pain secondary to lumbar degenerative disc disease , lumbar spondylosis with lumbar facet arthropathy . Pain improved after RFA of the medial branch lumbar area. Patient to use Celebrex 200 mg when necessary, he is instructed to continue the same medication when necessary. he will follow up in the pain clinic when necessary Time with Patient: Less than 30
== END | disposition home or self-care (01) ==
LOC: PNWHC3 07:41
PROVIDERS: ATTEND Specialist
DX: M51.36 Other intervertebral disc degeneration, lumbar region (principal); M47.896 Other spondylosis, lumbar region; M46.96 Unspecified inflammatory spondylopathy, lumbar region
CPT/HCPCS: 99211

== ENCOUNTER → 2022-07-24 | Outpatient (CLI) | payer BC ==
[2022-07-24 09:02] VITALS: BP 133/82; PULSE 64; RESP 16; TEMP 97.6
--- NOTE | 2022-07-24 14:42 | P.PAINPG ---
PQRS Measure Charge Sheet Comment: A 57 yr old male with a history of severe and chronic low back pain secondary to lumbar DDD and spondylosis with facet arthropathy without myelopathy presents today for LBP. Pain level is currently at 9/10 in intensity, constant, localized in the L lower lumbar spine, sharp in character w shooting towards the BLEs. Pain is provoked by bending/ lifting/ other weight bearing activity. Pain is alleviated with PT/ chiropractic treatments in the past, home exercises daily, medications (Celebrex), repositioning and rest. Interventional pain procedures completed include BL RFA L3-L5, LESIs Patient is currently on Celebrex Patient denies any side effects of the medication(s), denies excessive drowsiness or sleepiness, denies suicidal ideation and reports that the current pain medication is helping to control the pain and improve activities of daily living. Patient denies any motor or sensory deficits. Patient denies any fever or night sweats, denies any change in the bowel movements or urination. Physical Examination: -Constitutional: Cooperative. Not in acute distress . - Neurologic: Cranial nerve II to XII intact. No focal neurological deficits. - Psychatric: Alert & oriented x 3. Matching mood & appropriate affect. Judgment and insight intact. - Musculoskeletal: Cervical spine: Muscle bulk/ tone/ strength in the bilateral upper extremities normal Vertebral body tenderness to palpation over Spurling test positive Distraction test positive Facet loading test positive Thoracic spine Muscle bulk / tone/ strength in the bilateral paraspinal muscles normal Vertebral body tender to palpation over Facet loading test positive Lumbar spine: Motor bulk/ tone/ strength lower extremities , thigh and legs : 5/5 Deep tendon reflexes : Normal Knee Jerk. Normal Ankle Jerk . Vertebral body tenderness to palpation over L5 Lumbar Facet Loading Test positive Straight Leg Raise: positive at 30 degrees right side/ left side Gaenslen's Test positive Sacral spine : Severe tenderness over the Sacroiliac joint: right side / left side Range of motion: Flexion of the lumbar spine <60 degrees Range of motion: Extension of the lumbar spine <20 degrees Gaenslen's Test positive Dominga test: positive right side / left side Thigh Thrust Test Sacral Thrust Test Assessment and plan: Chronic low back pain secondary to lumbar degenerative disc disease, spondylosis with facet arthropathy without myelopathy Recommendation of RUCHI L5-S1. May need a series of injections, up to 3 within a 6mo period, for optimal pain relief. Risks, benefits of procedure discussed and pt verbalized understanding. Denies anticoagulant use or medical history of diabetes. All patient questions answered I have spent less than 30 minutes on patient care today. Dr Muñoz was available by phone for the evaluation of this patient. The time was used to review the medical records including relevant urine studies and Prescription history (MAPs), review of the available imaging, evaluation and examination of the patient, coordination of care with the medical staff and if applicable referring physicians, as well as creation of the medical record - Pain Location Lower Back Non-Pharmacological Interventions: Chiropractic Treatment, Home Exercise, Physical Therapy, Position/Reposition, Stretching Pharmacological Interventions: Block, Epidural PQRS Narrative: Hx Alcohol Use (MH) No Home Medications: Ambulatory Orders Celecoxib [CeleBREX] 200 mg PO BID PRN 09/11/21 Controlled Substance Measures - Controlled Substance Measures Is patient prescribed a controlled substance at discharge?: No
== END ==
LOC: PNWHC3 08:36
PROVIDERS: ATTEND Specialist
DX: M47.816 Spondylosis without myelopathy or radiculopathy, lumbar region (principal); G89.29 Other chronic pain; M51.36 Other intervertebral disc degeneration, lumbar region
CPT/HCPCS: 99211

== ENCOUNTER 2022-08-21 06:25 | Day surgery (SDC) | payer BC ==
[2022-08-19 10:33] VITALS: BMI 31.5
[2022-08-21] MEDS ORDERED: LACTATED RINGERS 1,000 ML IV ONE (06:55)
[2022-08-21 06:57] VITALS: TEMP 98.1
[2022-08-21] MEDS ORDERED: MIDAZOLAM 2 MG/2 ML VIAL ONE (07:06)
[2022-08-21] MEDS ORDERED: methylPREDNISolone ACETATE 80 MG/ML 1 ML VIAL ONE (07:06)
[2022-08-21] MEDS ORDERED: IOPAMIDOL M200 10 ML VIAL ONE (07:06)
[2022-08-21] MEDS ORDERED: fentaNYL (PF) 50 MCG/ML 2 ML AMP ONE (07:06)
--- NOTE | 2022-08-21 07:21 | P.PCN ---
Date of Procedure: 08/21/22 Description of Procedure: Procedure: 1. L5-S1 Epidural steroid injection under fluoroscopic guidance # 1 , 2. Lumbar epidurogram PREOPERATIVE DIAGNOSIS: Lumbar degenerative disc disease, and Lumbar radiculopathy. POSTOPERATIVE DIAGNOSIS: Lumbar degenerative disc disease, and Lumbar radiculopathy. SURGEON: Portia Santillan ANESTHESIA: Local with 1% lidocaine, and IV sedation: Versed 2 mg, and fentanyl 100 g Sedation supervision start time: 708 Sedation supervision ended time 0 719 EBL: None. Specimen removed: None Fluoroscopic image: saved to electronic medical records PROCEDURE INDICATION: The patient had history of Lumbar degenerative disc disease and Lumbar radiculopathy. Failed to conservative therapy. Presented for epidural steroid injection. PROCEDURE DESCRIPTION: The patient was seen and identified in the preoperative area. Risks, benefits, complications, and alternatives were discussed with the patient. The patient agreed to proceed with the procedure and signed the consent. IV was started, and vital signs were stable. Patient was taken to the procedure area, and time out was completed. The patient was placed in the prone position on procedure table and a pillow was placed under the abdomen to reduce lumbar lordosis. The lumbosacral area was prepped and draped in the usual sterile fashion. Critical pause was taken. Vital signs were closely monitored during the procedure. Using anterior-posterior fluoroscopy, the L5-S1 interlaminar space was identified, and skin and deeper tissues were localized with 1% lidocaine. Using anterior-posterior fluoroscopy, lateral fluoroscopy, and hwiw-fd-jnmzsxposx technique, a 20 gauge 3.5 Tuohy epidural needle entered the epidural space. After negative aspiration of CSF and blood with no paresthesias, 2 ml of [id number] contrast dye was injected and an excellent epidurogram was seen. Again after negative aspiration of CSF and blood with no paresthesias, 8 mL of block solution was injected into the epidural space. Block solution contained 80 mg of Depo-Medrol, and 7 mL of preservative-free normal saline. Needle was withdrawn intact, skin was cleansed, and bandages were applied. COMPLICATIONS: None. DISPOSITION / PLANS: The patient was placed in a supine position and transferred to the recovery area in a stable condition for observation. Patient was discharged from the recovery room after meeting discharge criteria. Home discharge instructions given to the patient by the staff. The patient was reexamined prior to discharge. The patient will schedule a follow up in the clinic in 4 weeks.
[2022-08-21] MEDS ORDERED: IV FLUID CONTINUATION 1,000 ML IV ONE ×2 (07:24)
[2022-08-21 07:27] VITALS: RESP 18
[2022-08-21] MEDS ORDERED: LACTATED RINGERS 1,000 ML IV SCH (07:30)
--- NOTE | 2022-08-21 07:43 | FL ---
EXAMINATION TYPE: FL guided pain mgmt statistic DATE OF EXAM: 08/21/2022 FLUOROSCOPY Fluoroscopy time of 3 seconds was used during lumbar epidural steroid injection. 2 image/s document/ s the procedure.
[2022-08-21 07:44] VITALS: BP 109/70; PULSE 70
== END 2022-08-21 07:52 | disposition home or self-care (01) ==
LOC: ORPAIN 06:25
DX: M51.16 Intervertebral disc disorders with radiculopathy, lumbar region (principal); M47.26 Other spondylosis with radiculopathy, lumbar region; J45.909 Unspecified asthma, uncomplicated; Z79.1 Long term (current) use of non-steroidal anti-inflammatories (NSAID); Z98.890 Other specified postprocedural states
CPT/HCPCS: 62323; 99152; J2250; J1040; J3010; Q9966

== ENCOUNTER → 2022-09-04 | Outpatient (CLI) | payer BC ==
[2022-09-04 08:04] VITALS: BP 125/87; PULSE 62; RESP 18; TEMP 98.1
--- NOTE | 2022-09-04 14:16 | P.PAINPG ---
PQRS Measure Charge Sheet Comment: A 57 yr old male with a history of severe and chronic low back pain x 20 yrs (on & off) secondary to lumbar DDD and spondylosis with facet arthropathy without myelopathy presents today for evaluation s/p RUCHI L5-S1. Pt states he experienced 80 % pain relief x 2 wks s/p procedure. Pain level is provoked at 5 /10 in intensity, constant, localized in the lumbar spine, achy/ sharp in character without shooting pain. Pain is provoked by standing/ sitting/ laying supine for periods of 1 hr or more. Pain is alleviated with PT in 2018, home exercise regularly, chiropractic treatments semi monthly until 2021 until relief plateaued, heat, meds (Celebrex), repositioning and rest. Interventional pain procedures completed include LUZ MARIA Cristobal L3-L5 Patient is currently on Celebrex Patient denies any side effects of the medication(s), denies excessive drowsiness or sleepiness, denies suicidal ideation and reports that the current pain medication is helping to control the pain and improve activities of daily living. Patient denies any motor or sensory deficits. Patient denies any fever or night sweats, denies any change in the bowel movements or urination. Physical Examination: -Constitutional: Cooperative. Not in acute distress . - Neurologic: Cranial nerve II to XII intact. No focal neurological de ficits. - Psychatric: Alert & oriented x 3. Matching mood & appropriate affect. Judgment and insight intact. - Musculoskeletal: Cervical spine: Muscle bulk/ tone/ strength in the bilateral upper extremities normal Vertebral body tenderness to palpation over Spurling test positive Distraction test positive Facet loading test positive Thoracic spine Muscle bulk / tone/ strength in the bilateral paraspinal muscles normal Vertebral body tender to palpation over Facet loading test positive Lumbar spine: Motor bulk/ tone/ strength lower extremities , thigh and legs : 5/5 Deep tendon reflexes : Normal Knee Jerk. Normal Ankle Jerk . Vertebral body tenderness to palpation over Lumbar Facet Loading Test positive Straight Leg Raise: positive at 30 degrees right side/ left side Gaenslen's Test positive Sacral spine : Severe tenderness over the Sacroiliac joint: right side / left side Range of motion: Flexion of the lumbar spine <60 degrees Range of motion: Extension of the lumbar spine <20 degrees Gaenslen's Test positive Dominga test: positive right side / left side Thigh Thrust Test Sacral Thrust Test Assessment and plan: Chronic low back pain secondary to lumbar degenerative disc disease, spondylosis with facet arthropathy without myelopathy Pt exhibited sufficient pain relief w LESI. He will manage residual pain at home. May return to clinic on an as needed basis. All patient questions answered I have spent less than 30 minutes on patient care today. Dr Muñoz was available by phone for the evaluation of this patient. The time was used to review the medical records including relevant urine studies and Prescription history (MAPs), review of the available imaging, evaluation and examination of the patient, coordination of care with the medical staff and if applicable referring physicians, as well as creation of the medical record PQRS Narrative: Hx Alcohol Use (MH) No Home Medications: Ambulatory Orders Celecoxib [CeleBREX] 200 mg PO BID PRN 09/11/21 Controlled Substance Measures - Controlled Substance Measures Is patient prescribed a controlled substance at discharge?: No
== END ==
LOC: PNWHC3 07:33
PROVIDERS: ATTEND Specialist
DX: M47.816 Spondylosis without myelopathy or radiculopathy, lumbar region (principal); M51.36 Other intervertebral disc degeneration, lumbar region; G89.29 Other chronic pain
CPT/HCPCS: 99211

== ENCOUNTER 2022-10-28 10:36 | Day surgery (SDC) | payer BC ==
[2022-10-28 11:10] VITALS: TEMP 97.9
[2022-10-28] MEDS ORDERED: LACTATED RINGERS 1,000 ML IV ONE (11:14)
[2022-10-28] MEDS ORDERED: ROPIVACAINE 5 MG/ML 20 ML AMPULE ONE (11:40)
[2022-10-28] MEDS ORDERED: methylPREDNISolone ACETATE 40 MG/ML 1 ML VIAL ONE (11:40)
[2022-10-28] MEDS ORDERED: IV FLUID CONTINUATION 950 ML IV ONE (11:52)
--- NOTE | 2022-10-28 11:52 | P.PCN ---
Date of Procedure: 10/28/22 Procedure(s) Performed: Procedure= trigger point injections lumbar paraspinal muscles bilaterally , 3 on the right side from L2 to S1, and 4 on the left side from L2 to S1 Preoperative diagnosis= 1-myofascial pain syndrome lumbar paraspinal muscles 2-lumbar degenerative disc disease 3-lumbar facet arthropathy Postoperative diagnosis=Same as preop Diagnosis . Complication = none Condition= stable Anesthesia= none Indication for the procedure= patient complaining of low back pain , examination was positive for multiple trigger point in the lumbar paraspinal muscles bilaterally and patient diagnosed with myofascial pain syndrome and is here to have trigger point injections Description of the procedure= procedure risk and benefits discussed with the patient, including but not limited, risk of infection and bleeding, and ALLERGIC reaction to the medication and not complete pain relief and patient agreed with the preceding patient taken to the operating room, placed in sitting position or standard monitors applied to the patient then after induction of anesthesia back prepped with chlorhexidine 3 times , then under sterile technique each of the trigger point that was marked in the preop holding area 3 on the right side lumbar paraspinal muscles and 4 on the left side lumbar paraspinal muscles each one of them injected with the 2 mL of the mixture of ropivacaine 0.5% 14 ML mixed with 40 mg of Depo-Medrol and 2 mL of the mixture injected at each trigger point after negative aspiration, using 25-gauge needle, injection done after negative aspiration under was no paresthesia during the injection patient tolerated the procedure well without any complications and he will follow up in the pain clinic in a few weeks
[2022-10-28 11:58] VITALS: RESP 16
[2022-10-28 12:19] VITALS: BP 127/80; PULSE 62
== END 2022-10-28 12:29 | disposition home or self-care (01) ==
LOC: ORPAIN 10:36
PROVIDERS: ATTEND Specialist
DX: M79.18 Myalgia, other site (principal); M51.36 Other intervertebral disc degeneration, lumbar region; M47.816 Spondylosis without myelopathy or radiculopathy, lumbar region
CPT/HCPCS: 20553; J1030; J2795

== ENCOUNTER → 2022-11-05 | Outpatient (CLI) | payer BC ==
[2022-11-05 11:40] VITALS: BP 123/80; PULSE 73; RESP 18; TEMP 98.4
--- NOTE | 2022-11-05 14:40 | P.PAINPG ---
PQRS Measure Charge Sheet Comment: A 57 yr old male with a history of severe and chronic LBP secondary to lumbar DDD and spondylosis with facet arthropathy without myelopathy presents today for evaluation s/p Lumbar TPIs. Pt states he experienced 50 % pain relief x 1 day s/p procedure. He recalls that with the RFA of the BL L4-L5, L5-S1 he e xperienced 80% pain relief x 4 mo s/p procedure. Pain level is provoked at 8 /10 in intensity, constant, localized in the lumbar spine, achy in character w shooting towards the BLEs. Pain is provoked by standing for periods of 15 min or more. Pain is alleviated with injections, PT 4-5 yrs ago, heat, medications (Celebrex), hot showers, home stretching regimen, repositioning and rest. Interventional pain procedures completed include BL RFA L3-L5 x2 (Last Jun 2022), RUCHI L5-S1 x2, RUCHI L4-L5 x1 Patient is currently on Celebrex Patient denies any side effects of the medication(s), denies excessive drowsiness or sleepiness, denies suicidal ideation and reports that the current pain medication is helping to control the pain and improve activities of daily living. Patient denies any motor or sensory deficits. Patient denies any fever or night sweats, denies any change in the bowel movements or urination. Physical Examination: -Constitutional: Cooperative. Not in acute distress . - Neurologic: Cranial nerve II to XII intact. No focal neurological deficits. - Psychatric: Alert & oriented x 3. Matching mood & appropriate affect. Judgment and insight intact. - Musculoskeletal: Cervical spine: Muscle bulk/ tone/ strength in the bilateral upper extremities normal Vertebral body tenderness to palpation over Spurling test positive Distraction test positive Facet loading test positive TTP Thoracic spine Muscle bulk / tone/ strength in the bilateral paraspinal muscles normal Vertebral body tender to palpation over Facet loading test positive TTP Lumbar spine: Motor bulk/ tone/ strength lower extremities , thigh and legs : 5/5 Deep tendon reflexes : Normal Knee Jerk. Normal Ankle Jerk . Vertebral body tenderness to palpation over Lumbar Facet Loading Test positive TTP over BL L4-L5, L5-S1 facets Straight Leg Raise: positive at 30 degrees right side/ left side Gaenslen's Test positive Sacral spine : Severe tenderness over the Sacroiliac joint: right side / left side Range of motion: Flexion of the lumbar spine <60 degrees Range of motion: Extension of the lumbar spine <20 degrees Gaenslen's Test positive right side / left side Dominga test: positive right side / left side Thigh Thrust Test positive right side / left side Sacral Thrust Test positive right side / left side Assessment and plan: Chronic LBP secondary to lumbar DDD, spondylosis with facet arthropathy without myelopathy Recommendation of BL RFA L4-L5, L5-S1. Pt exhibited sufficient and substantial pain relief s/p procedure. Risks, benefits of procedure discussed and pt verbalized understanding. Admits to anticoagulant use or medical history of diabetes. Protocol for discontinuation/ continuation of medications robert procedure discussed. All questions answered. I have spent less than 30 minutes on patient care today. Dr Muñoz was available by phone for the evaluation of this patient. The time was used to review the medical records including relevant urine studies and Prescription history (MAPs), review of the available imaging, evaluation and examination of the patient, coordination of care with the medical staff and if applicable referring physicians, as well as creation of the medical record PQRS Narrative: Hx Alcohol Use (MH) No Home Medications: Ambulatory Orders Celecoxib [CeleBREX] 200 mg PO BID PRN 30 Days #60 cap 10/09/22 Controlled Substance Measures - Controlled Substance Measures Is patient prescribed a controlled substance at discharge?: No
== END ==
LOC: PNWHC3 11:06
PROVIDERS: ATTEND Specialist
DX: M51.36 Other intervertebral disc degeneration, lumbar region (principal); M47.816 Spondylosis without myelopathy or radiculopathy, lumbar region; G89.29 Other chronic pain
CPT/HCPCS: 99211

== ENCOUNTER 2022-12-26 08:58 | Day surgery (SDC) | payer BC ==
[2022-12-26] MEDS: LACTATED RINGERS 1,000 ML IV SCH ×2 (09:17→09:27)
[2022-12-26 09:29] VITALS: TEMP 97.2
[2022-12-26] MEDS ORDERED: fentaNYL (PF) 50 MCG/ML 2 ML AMP ONE (09:34)
[2022-12-26] MEDS ORDERED: ROPIVACAINE 5 MG/ML 20 ML AMPULE ONE (09:34)
[2022-12-26] MEDS ORDERED: MIDAZOLAM 2 MG/2 ML VIAL ONE (09:34)
--- NOTE | 2022-12-26 09:58 | P.PCN ---
Date of Procedure: 12/26/22 Description of Procedure: PREOPERATIVE DIAGNOSIS: Lumbar Facet Arthropathy without myelopathy POSTOPERATIVE DIAGNOSIS: Same PROCEDURES: Bilateral Radiofrequency thermocoagulation of L4-5, L5-S1 medial branches, with fluoroscopic guidance ANESTHESIA: See anesthesia record Imaging: Fluoroscopy was used, images where saved to the medical record PROCEDURE INDICATION: The patient with low back pain secondary to lumbar facet arthropathy who had more than 50% relief of pain with previous diagnostic lumbar medial branch block with local anesthetic. PROCEDURE DESCRIPTION / TECHNIQUE: The patient was seen and identified in the preoperative area. Risks, benefits, complications, including but not limited to risk of infection, bleeding, allergic reactions to the medications and no complete pain relief, and alternatives were discussed with the patient, the patient agreed to proceed with the procedure and signed the consent. IV was started. Vital signs remained stable throughout the procedure. Patient was taken to the OR and time out was completed. The patient was placed in the prone position on the procedure table. The lumber area was prepped and draped in the usual sterile fashion. Vital signs were closely monitored during the procedure. IV sedation was used during the procedure to decrease patient anxiety. Using AP and then oblique fluoroscopy, the eye of the Paulino dog corresponding to the connection between the superior and transverse articular processes of L4, L5, and sacral Ala were identified, marked, and localized with 1% lidocaine. Blake bsequently, a 20 -is radiofrequency cannula with a 10-mm active tip was advanced guided by fluoroscopy to the junction of the pedicle and transverse process of each identified level. Each site then underwent sensory testing at 50 Hz and 0 to 1 volt and motor testing at 2.5 Hz and 0 to 3 volt with local stimulation, no radicular symptoms sensed by the patient and no obvious motor stimulation noted. Thereafter the tested sites underwent radiofrequency thermocoagulation at 80 degrees celsius for 90 seconds after injecting 1 ml of PF lidocaine 1%. Then after the thermocoagulation was done, 1 ml of the block solution containing ropivaciane 0.5% was injected at the lesioned sites after negative aspiration of CSF and blood and with no paresthesias. Cannulas were retracted. At the end of the procedure, the skin was cleansed and bandages were applied. COMPLICATIONS: No acute complications. DISPOSITION / PLANS: The patient was placed in a supine position and transferred to the recovery area in a stable condition for observation and was discharged from the recovery room after meeting discharge criteria. Home discharge instructions given to the patient by the staff. The patient was reexamined prior to discharge. Patient will follow up as directed.
[2022-12-26] MEDS ORDERED: IV FLUID CONTINUATION 950 ML IV ONE (10:02)
--- NOTE | 2022-12-26 10:03 | FL ---
Intraoperative/procedural fluoroscopic services were provided for lumbar facet block. Total fluorosco py time is 33 seconds with a total of 6 submitted images to PACS. Total DAP [id number] Gycm2. Please se e the operative note for further details.
[2022-12-26 10:19] VITALS: BP 120/81; PULSE 60; RESP 16
== END 2022-12-26 10:34 | disposition home or self-care (01) ==
LOC: ORPAIN 08:58
PROVIDERS: ATTEND Hospitalist
DX: M47.816 Spondylosis without myelopathy or radiculopathy, lumbar region (principal); Z79.899 Other long term (current) drug therapy
CPT/HCPCS: 64635; 64636 ×2; J2250; J3010; J2795

== ENCOUNTER → 2023-01-21 | Outpatient (CLI) | payer BC ==
[2023-01-21 10:16] VITALS: BP 123/82; PULSE 94; RESP 18; TEMP 97.8
--- NOTE | 2023-01-21 14:44 | P.PAINPG ---
PQRS Measure Charge Sheet Comment: A 57 yr old male with a history of severe and chronic LBP secondary to lumbar DDD and spondylosis with facet arthropathy without myelopathy presents today for evaluation s/p BL RFA L3-5. Pt states he experienced 80% pain relief s/p procedure. Pain level is provoked at 7 /10 in intensity, constant, localized in the L lower lumbar spine, sharp, tight in character w shooting towards the BLEs. Pain is provoked by standing/ walking for periods of 20 min or more. Pain is alleviated with PT yrs ago which was ineffective, chiropractic treatments semi annually as needed, physician guided home stretches daily x 2 yrs, heat, medications, topical, injections, repositioning and rest. Interventional pain procedures completed include BL RFA L3-L5 Patient is currently on Celebrex Patient denies any side effects of the medication(s), denies excessive drowsiness or sleepiness, denies suicidal ideation and reports that the current pain medication is helping to control the pain and improve activities of daily living. Patient denies any motor or sensory deficits. Patient denies any fever or night sweats, denies any change in the bowel movements or urination. Physical Examination: -Constitutional: Cooperative. Not in acute distress . - Neurologic: Cranial nerve II to XII intact. No focal neurological defici ts. - Psychatric: Alert & oriented x 3. Matching mood & appropriate affect. Judgment and insight intact. - Musculoskeletal: Cervical spine: Muscle bulk/ tone/ strength in the bilateral upper extremities normal Vertebral body tenderness to palpation over Spurling test positive Distraction test positive Facet loading test positive TTP Thoracic spine Muscle bulk / tone/ strength in the bilateral paraspinal muscles normal Vertebral body tender to palpation over Facet loading test positive TTP Lumbar spine: Motor bulk/ tone/ strength lower extremities , thigh and legs : 5/5 Deep tendon reflexes : Normal Knee Jerk. Normal Ankle Jerk . Vertebral body tenderness to palpation over BL paraspinal TPs and TTP over L2-S1 Guzman Test positive Lumbar Facet Loading Test positive Straight Leg Raise: positive at 30 degrees right side/ left side Gaenslen's Test positive Sacral spine : Severe tenderness over the Sacroiliac joint: right side / left side Range of motion: Flexion of the lumbar spine <60 degrees Range of motion: Extension of the lumbar spine <20 degrees Gaenslen's Test positive right side / left side Dominga test: positive right side / left side Thigh Thrust Test positive right side / left side Sacral Thrust Test positive right side / left side Assessment and plan: Chronic LBP secondary to lumbar DDD, spondylosis with facet arthropathy without myelopathy Recommendation of BL TPIs L2-LS. May need a series of injections for optimal pain relief. Risks, benefits of procedure discussed and pt verbalized understanding. Admits to anticoagulant use or medical history of diabetes. Pr otocol for discontinuation/ continuation of medications robert procedure discussed. Minimal anesthesia provided, if clinically indicated, consisting of Versed and Fentanyl. All questions answered. I have spent less than 30 minutes on patient care today. Dr Muñoz was available by phone for the evaluation of this patient. The time was used to review the medical records including relevant urine studies and Prescription history (MAPs), review of the available imaging, evaluation and examination of the patient, coordination of care with the medical staff and if applicable referring physicians, as well as creation of the medical record PQRS Narrative: Hx Alcohol Use (MH) No Home Medications: Ambulatory Orders Celecoxib [CeleBREX] 200 mg PO BID PRN 30 Days #60 cap 10/09/22 Controlled Substance Measures - Controlled Substance Measures Is patient prescribed a controlled substance at discharge?: No
== END ==
LOC: PNWHC3 08:30
PROVIDERS: ATTEND Specialist
DX: M51.37 Other intervertebral disc degeneration, lumbosacral region (principal); M47.817 Spondylosis without myelopathy or radiculopathy, lumbosacral region; G89.29 Other chronic pain
CPT/HCPCS: 99211

== ENCOUNTER 2023-02-05 10:03 | Day surgery (SDC) | payer BC ==
[2023-02-02 13:20] VITALS: BMI 31.5
[2023-02-05] MEDS ORDERED: LACTATED RINGERS 1,000 ML IV SCH (10:45)
[2023-02-05 10:53] VITALS: PULSE 75; RESP 16; TEMP 97
[2023-02-05] MEDS ORDERED: ROPIVACAINE 5 MG/ML 20 ML AMPULE ONE (11:19)
[2023-02-05] MEDS ORDERED: methylPREDNISolone ACETATE 40 MG/ML 1 ML VIAL ONE (11:19)
--- NOTE | 2023-02-05 11:25 | P.PCN ---
Date of Procedure: 02/05/23 Procedure(s) Performed: Procedure= trigger point injections lumbar paraspinal muscles bilaterally , 2 on the right side from L2 to S1, and 5 on the left side from L2 to S1 Preoperative diagnosis= 1-myofascial pain syndrome lumbar paraspinal muscles 2-lumbar degenerative disc disease 3-lumbar facet arthropathy Postoperative diagnosis=Same as preop Diagnosis . Complication = none Condition= stable Anesthesia= none Indication for the procedure= patient complaining of low back pain , examination was positive for multiple trigger point in the lumbar paraspinal muscles bilaterally and patient diagnosed with myofascial pain syndrome and is here to have trigger point injections Description of the procedure= procedure risk and benefits discussed with the patient, including but not limited, risk of infection and bleeding, and ALLERGIC reaction to the medication and not complete pain relief and patient agreed with the preceding patient taken to the operating room, placed in sitting position or standard monitors applied to the patient then after induction of anesthesia back prepped with chlorhexidine 3 times , then under sterile technique each of the trigger point that was marked in the preop holding area 2 on the right side lumbar paraspinal muscles and 5 on the left side lumbar paraspinal muscles each one of them injected with the 2 mL of the mixture of ropivacaine 0.5% 14 ML mixed with 40 mg of Depo-Medrol and 2 mL of the mixture injected at each trigger point after negative aspiration, using 25-gauge needle, injection done after negative aspiration under was no paresthesia during the injection patient tolerated the procedure well without any complications and he will follow up in the pain clinic in a few weeks
[2023-02-05 11:30] VITALS: BP 127/81
== END 2023-02-05 11:47 | disposition home or self-care (01) ==
LOC: ORPAIN 10:03
PROVIDERS: ATTEND Specialist
DX: M51.36 Other intervertebral disc degeneration, lumbar region (principal); M47.817 Spondylosis without myelopathy or radiculopathy, lumbosacral region
CPT/HCPCS: 20553; J1030; J2795

== ENCOUNTER → 2023-03-05 | Outpatient (CLI) | payer BC ==
[2023-03-05 08:47] VITALS: BP 122/82; PULSE 63; RESP 14; TEMP 97.9
--- NOTE | 2023-03-05 14:03 | P.PAINPG ---
PQRS Measure Charge Sheet Comment: A 57 yr old male with a history of severe and chronic LBP secondary to lumbar DDD and spondylosis with facet arthropathy without myelopathy presents today for evaluation s/p BL Lumbar TPIs. Pt states he experienced 50 % pain relief x 2-3 wks s/p procedure. Pain level is provoked at 7/10 in intensity, constant, localized in the L lower lumbar spine, sharp, tight in character w shooting towards the BLEs. Pain is provoked by standing/ walking for periods of 20 min or more. Pain is alleviated with PT yrs ago which was ineffective, chiropractic treatments semi annually as needed, physician guided home stretches daily x 2 yrs, heat, medications, topical, injections, repositioning and rest. Oswestry axial pain score of 28. Interventional pain procedures completed include BL RFA L3-L5, Lumbar TPIs Patient is currently on Celebrex Patient denies any side effects of the medication(s), denies excessive d rowsiness or sleepiness, denies suicidal ideation and reports that the current pain medication is helping to control the pain and improve activities of daily living. Patient denies any motor or sensory deficits. Patient denies any fever or night sweats, denies any change in the bowel movements or urination. Physical Examination: -Constitutional: Cooperative. Not in acute distress . - Neurologic: Cranial nerve II to XII intact. No focal neurological deficits. - Psychatric: Alert & oriented x 3. Matching mood & appropriate affect. Judgment and insight intact. - Musculoskeletal: Cervical spine: Muscle bulk/ tone/ strength in the bilateral upper extremities normal Vertebral body tenderness to palpation over Spurling test positive Distraction test positive Facet loading test positive TTP Thoracic spine Muscle bulk / tone/ strength in the bilateral paraspinal muscles normal Vertebral body tender to palpation over Facet loading test positive TTP Lumbar spine: Motor bulk/ tone/ strength lower extremities , thigh and legs : 5/5 Deep tendon reflexes : Normal Knee Jerk. Normal Ankle Jerk . Vertebral body tenderness to palpation over L5 Guzman Test positive Lumbar Facet Loading Test positive Straight Leg Raise: positive at 30 degrees right side/ left side Gaenslen's Test positive Sacral spine : Severe tenderness over the Sacroiliac joint: right side / left side Range of motion: Flexion of the lumbar spine <60 degrees Range of motion: Extension of the lumbar spine <20 degrees Gaenslen's Test positive right side / left side Dominga test: positive right side / left side Thigh Thrust Test positive right side / left side Sacral Thrust Test positive right side / left side Assessment and plan: Chronic LBP secondary to lumbar DDD, spondylosis with facet arthropathy without myelopathy Recommendation of RUCHI L5-S1 #1. May need a series of injections for optimal pain relief. Risks, benefits of procedure discussed and pt verbalized understanding. Admits to anticoagulant use or medical history of diabetes. Protocol for discontinuation/ continuation of medications robert procedure discussed. Minimal anesthesia provided, if clinically indicated, consisting of Versed and Fentanyl. All questions answered. I have spent less than 30 minutes on patient care today. Dr Muñoz was available by phone for the evaluation of this patient. The time was used to review the medical records including relevant urine studies and Prescription history (MAPs), review of the available imaging, evaluation and examination of the patient, coordination of care with the medical staff and if applicable referring physicians, as well as creation of the medical record PQRS Narrative: Hx Alcohol Use (MH) No Home Medications: Ambulatory Orders Celecoxib [CeleBREX] 200 mg PO BID PRN 30 Days #60 cap 10/09/22 Controlled Substance Measures - Controlled Substance Measures Is patient prescribed a controlled substance at discharge?: No
== END ==
LOC: PNWHC3 08:11
PROVIDERS: ATTEND Specialist
DX: M51.36 Other intervertebral disc degeneration, lumbar region (principal); M47.816 Spondylosis without myelopathy or radiculopathy, lumbar region; G89.29 Other chronic pain
CPT/HCPCS: 99211

== ENCOUNTER 2023-03-24 06:03 | Day surgery (SDC) | payer BC ==
[2023-03-17 12:20] VITALS: BMI 31.5
[2023-03-24 06:20] VITALS: TEMP 97.7
[2023-03-24] MEDS ORDERED: methylPREDNISolone ACETATE 80 MG/ML 1 ML VIAL ONE (07:05)
[2023-03-24] MEDS ORDERED: IOPAMIDOL M200 10 ML VIAL ONE (07:05)
--- NOTE | 2023-03-24 07:10 | P.PCN ---
Date of Procedure: 03/24/23 Procedure(s) Performed: PREOPERATIVE DIAGNOSIS: 1- Lumbar Degenerative Disc Diseases 2-Lumbar spondylosis with Facet arthropathy without myelopathy. POSTOPERATIVE DIAGNOSIS: 1-lumbar degenerative disc disease. 2-lumbar spondylosis with facet arthropathy without myelopathy. PROCEDURE 1. Lumbar epidural steroid injection under fluoroscopic guidance at the L5-S1 level. (Fluoroscopy imaging was available in radiology department) 2. Lumbar epidurogram. ANESTHESIA: Lidocaine 1% 3 and then only. EBL: Minimal PROCEDURE INDICATION: The patient with low back pain and radiculitis symptoms unresponsive to conservative treatment. Fluoroscopy was used to optimize visualization of the needle placement and to maximize safety. PROCEDURE DESCRIPTION / TECHNIQUE: The patient was seen and identified in the preoperative area. Risks, benefits, complications including but not limited to infections ,bleeding ,allergic reaction to the medications ,nerve damage and not complete pain releife , and alternatives were discussed with the patient. The patient agreed to proceed with the procedure and signed the consent, and vital signs were stable. Patient was taken to the OR and time out was completed. The patient was placed in the prone position on procedure table and a pillow was placed under the abdomen to reduce lumbar lordosis. The lumbosacral area was prepped and draped in the usual sterile fashion.ere closely monitored during the procedure. Vital signs was monitered during the entire procedure. Using anterior-posterior fluoroscopy, the L5-S1 interlaminar space was identified and the skin over this site was marked and then infiltrated with 1% lidocaine subcutaneously. Subsequently, a 20-gauge Tuohy epidural needle was inserted and advanced toward the epidural space using the ``Loss of resistance technique and guided by AP and lateral fluoroscopy. The correct needle position in the epidural space was verified with the injection of 2 mL of the water soluble contrast dye Isovue 200 contrast and observing an excellent epidurogram with the epidural spread of the dye, after negative aspiration for blood and CSF and in the absence of paresthesias. Again after negative aspiration, a 6 ml mixture containing 80 mg of Depo-medrol ( Preservetive Free ), and 2 ml of preservative free Normal Saline, and 2 ml of preservative free lidocaine 1% solution was injected and a washout of epidurogram was seen. Needle was withdrawn intact, skin was cleansed, and bandages were applied. COMPLICATIONS: None DISPOSITION / PLANS: The patient was placed in a supine position and transferred to the recovery area in a stable condition for observation. There was no ev idence of lower extremity motor or sensory deficit after the procedure. Patient was discharged from the recovery room after meeting discharge criteria. Home discharge instructions were given to the patient by the staff. The patient was reexamined prior to discharge. The patient will schedule a follow up in the clinic in 2-4 weeks.
[2023-03-24 07:15] VITALS: BP 139/88; PULSE 58; RESP 16
--- NOTE | 2023-03-24 08:59 | FL ---
Intraoperative/procedural fluoroscopic services were provided. Total fluoroscopy time is 2.1 seconds with a total of 1 submitted images to PACS. Please see the operative/procedural note for further deta ils. DAP: 0.11039 mGym2
== END 2023-03-24 07:29 | disposition home or self-care (01) ==
LOC: ORPAIN 06:03
PROVIDERS: ATTEND Specialist
DX: M54.51 Vertebrogenic low back pain (principal); M51.16 Intervertebral disc disorders with radiculopathy, lumbar region; M47.26 Other spondylosis with radiculopathy, lumbar region
CPT/HCPCS: 62323; J1040; Q9966

== ENCOUNTER → 2023-04-16 | Outpatient (CLI) | payer BC ==
[2023-04-16 13:12] VITALS: BP 130/86; PULSE 76; RESP 16; TEMP 98
--- NOTE | 2023-04-16 14:53 | P.PAINPG ---
PQRS Measure Charge Sheet Comment: A 57 yr old male with a history of severe and chronic LBP secondary to lumbar DDD and spondylosis with facet arthropathy without myelopathy presents today for evaluation s/p RUCHI L5-S1 #1. Pt states he experienced 80% pain relief x 2-3 wks s/p procedure. Pain level is provoked at 8/10 in intensity, constant, localized in the L lower lumbar spine, sharp, tight in character w shooting towards the BLEs. Pain is provoked by standing/ walking for periods of 20 min or more. Pain is alleviated with PT yrs ago which was ineffective, chiropractic treatments semi annually as needed, physician guided home stretches daily x 2 yrs, heat, medications, topical, injections, repositioning and rest. Oswestry axial pain score of 26. Interventional pain procedures completed include BL RFA L3-L5, Lumbar TPIs, RUCHI L5-S1 x1 Patient is currently on Celebrex Patient denies any side effects of the medication(s), denies excessive drowsiness or sleepiness, denies suicidal ideation and reports that the current pain medication is helping to control the pain and improve activities of daily living. Patient denies any motor or sensory deficits. Patient denies any fever or night sweats, denies any change in the bowel movements or urination. Physical Examination: -Constitutional: Cooperative. Not in acute distress . - Neurologic: Cranial nerve II to XII intact. No focal neurological deficits. - Psychatric: Alert & oriented x 3. Matching mood & appropriate affect. Judgment and insight intact. - Musculoskeletal: Cervical spine: Muscle bulk/ tone/ strength in the bilateral upper extremities normal Vertebral body tenderness to palpation over Spurling test positive Distraction test positive Facet loading test positive TTP Thoracic spine Muscle bulk / tone/ strength in the bilateral paraspinal muscles normal Vertebral body tender to palpation over Facet loading test positive TTP Lumbar spine: Motor bulk/ tone/ strength lower extremities , thigh and legs : 5/5 Deep tendon reflexes : Normal Knee Jerk. Normal Ankle Jerk . Vertebral body tenderness to palpation over L5 Guzman Test positive Lumbar Facet Loading Test positive Straight Leg Raise: positive at 30 degrees right side/ left side Gaenslen's Test positive Sacral spine : Severe tenderness over the Sacroiliac joint: right side / left side Range of motion: Flexion of the lumbar spine <60 degrees Range of motion: Extension of the lumbar spine <20 degrees Gaenslen's Test positive right side / left side Dominga test: positive right side / left side Thigh Thrust Test positive right side / left side Sacral Thrust Test positive right side / left side Assessment and plan: Chronic LBP secondary to lumbar DDD, spondylosis with facet arthropathy without myelopathy Recommendation of RUCHI L5-S1 #2. May need a series of injections for optimal pain relief. Risks, benefits of procedure discussed and pt verbalized understanding. Admits to anticoagulant use or medical history of diabetes. Protocol for discontinuation/ continuation of medications robert procedure discussed. Minimal anesthesia provided, if clinically indicated, consisting of Versed and Fentanyl. All questions answered. I have spent less than 30 minutes on patient care today. Dr Muñoz was available by phone for the evaluation of this patient. The time was used to review the medical records including relevant urine studies and Prescription history (MAPs), review of the available imaging, evaluation and examination of the patient, coordination of care with the medical staff and if applicable referring physicians, as well as creation of the medical record PQRS Narrative: Hx Alcohol Use (MH) Yes: Occassional Home Medications: Ambulatory Orders Celecoxib [CeleBREX] 200 mg PO BID PRN 30 Days #60 cap 10/09/22 Controlled Substance Measures - Controlled Substance Measures Is patient prescribed a controlled substance at discharge?: No
== END ==
LOC: PNWHC3 11:07
PROVIDERS: ATTEND Specialist
DX: M51.36 Other intervertebral disc degeneration, lumbar region (principal); M47.816 Spondylosis without myelopathy or radiculopathy, lumbar region; G89.29 Other chronic pain
CPT/HCPCS: 99211

== ENCOUNTER 2023-04-30 10:01 | Day surgery (SDC) | payer BC ==
[2023-04-30] MEDS ORDERED: LACTATED RINGERS 1,000 ML IV SCH (10:32)
[2023-04-30] MEDS ORDERED: methylPREDNISolone ACETATE 80 MG/ML 1 ML VIAL ONE (10:50)
[2023-04-30] MEDS ORDERED: IOPAMIDOL M200 10 ML VIAL ONE (10:50)
--- NOTE | 2023-04-30 10:54 | P.PCN ---
Date of Procedure: 04/30/23 Procedure(s) Performed: PREOPERATIVE DIAGNOSIS: 1- Lumbar Degenerative Disc Diseases 2-Lumbar spondylosis with Facet arthropathy without myelopathy. POSTOPERATIVE DIAGNOSIS: 1-lumbar degenerative disc disease. 2-lumbar spondylosis with facet arthropathy without myelopathy. PROCEDURE 1. Lumbar epidural steroid injection under fluoroscopic guidance at the L5-S1 level. (Fluoroscopy imaging was available in radiology department) 2. Lumbar epidurogram. ANESTHESIA: Lidocaine 1% 3 and then only. EBL: Minimal PROCEDURE INDICATION: The patient with low back pain and radiculitis symptoms unresponsive to conservative treatment. Fluoroscopy was used to optimize visualization of the needle placement and to maximize safety. PROCEDURE DESCRIPTION / TECHNIQUE: The patient was seen and identified in the preoperative area. Risks, benefits, complications including but not limited to infections ,bleeding ,allergic reaction to the medications ,nerve damage and not complete pain releife , and alternatives were discussed with the patient. The patient agreed to proceed with the procedure and signed the consent, and vital signs were stable. Patient was taken to the OR and time out was completed. The patient was placed in the prone position on procedure table and a pillow was placed under the abdomen to reduce lumbar lordosis. The lumbosacral area was prepped and draped in the usual sterile fashion.ere closely monitored during the procedure. Vital signs was monitered during the entire procedure. Using anterior-posterior fluoroscopy, the L5-S1 interlaminar space was identified and the skin over this site was marked and then infiltrated with 1% lidocaine subcutaneously. Subsequently, a 20-gauge Tuohy epidural needle was inserted and advanced toward the epidural space using the ``Loss of resistance technique and guided by AP and lateral fluoroscopy. The correct needle position in the epidural space was verified with the injection of 2 mL of the water soluble contrast dye Isovue 200 contrast and observing an excellent epidurogram with the epidural spread of the dye, after negative aspiration for blood and CSF and in the absence of paresthesias. Again after negative aspiration, a 6 ml mixture containing 80 mg of Depo-medrol ( Preservetive Free ), and 2 ml of preservative free Normal Saline, and 2 ml of preservative free lidocaine 1% solution was injected and a washout of epidurogram was seen. Needle was withdrawn intact, skin was cleansed, and bandages were applied. COMPLICATIONS: None DISPOSITION / PLANS: The patient was placed in a supine position and transferred to the recovery area in a stable condition for observation. There was no evidence of lower extremity motor or sensory deficit after the procedure. Patient was discharged from the recovery room after meeting discharge criteria. Home discharge instructions were given to the patient by the staff. The patient was reexamined prior to discharge. The patient will schedule a follow up in the clinic in 2-4 weeks.
--- NOTE | 2023-04-30 11:20 | FL ---
Intraoperative/procedural fluoroscopic services were provided. Total fluoroscopy time is 2.0 seconds with a total of 1 submitted images to PACS. Please see the operative/procedural note for further deta ils. DAP: [id number] mGym2
[2023-04-30 16:02] VITALS: BP 122/85; PULSE 56; RESP 16; TEMP 97.8
== END 2023-04-30 11:30 | disposition home or self-care (01) ==
LOC: ORPAIN 10:01
PROVIDERS: ATTEND Specialist
DX: M51.16 Intervertebral disc disorders with radiculopathy, lumbar region (principal); M47.26 Other spondylosis with radiculopathy, lumbar region
CPT/HCPCS: 62323; J1040; Q9966

== ENCOUNTER → 2023-05-20 | Outpatient (CLI) | payer BC ==
[2023-05-20 10:32] VITALS: BP 127/81; PULSE 89; RESP 16; TEMP 97.2
--- NOTE | 2023-05-20 14:41 | P.PAINPG ---
PQRS Measure Charge Sheet Comment: A 4 yr old male with a history of severe and chronic LBP secondary to lumbar DDD and spondylosis with facet arthropathy without myelopathy presents today for evaluation s/p RUCHI L5-S1 #2. Pt states he experienced 80 % pain relief x 3 wks s/p procedure. Pain level is provoked at 8/10 in intensity, constant, localized in the L lower lumbar spine, sharp in character w shooting towards the BLEs. Pain is provoked by standing/ walking for periods of 20 min or more. Pain is alleviated with PT yrs ago which was ineffective, chiropractic treatments semi annually as needed, physician guided home stretches daily x 2 yrs, heat, medications, topical, injections, repositioning and rest. Oswestry axial pain score of 26. Interventional pain procedures completed include BL RFA L3-L5, Lumbar TPIs, RUCHI L5-S1 x2 Patient is currently on Celebrex Patient denies any side effects of the medication(s), denies excessive drowsiness or sleepiness, denies suicidal ideation and reports that the current pain medication is helping to control the pain and improve activities of daily living. Patient denies any motor or sensory deficits. Patient denies any fever or night sweats, denies any change in the bowel movements or urination. Physical Examination: -Constitutional: Cooperative. Not in acute distress . - Neurologic: Cranial nerve II to XII intact. No focal neurological deficits. - Psychatric: Alert & oriented x 3. Matching mood & appropriate affect. Judgment and insight intact. - Musculoskeletal: Cervical spine: Muscle bulk/ tone/ strength in the bilateral upper extremities normal Vertebral body tenderness to palpation over Spurling test positive Distraction test positive Facet loading test positive TTP Thoracic spine Muscle bulk / tone/ strength in the bilateral paraspinal muscles normal Vertebral body tender to palpation over Facet loading test positive TTP Lumbar spine: Motor bulk/ tone/ strength lower extremities , thigh and legs : 5/5 Deep tendon reflexes : Normal Knee Jerk. Normal Ankle Jerk . Vertebral body tenderness to palpation over L5 Guzman Test positive Lumbar Facet Loading Test positive Straight Leg Raise: positive at 30 degrees right side/ left side Gaenslen's Test positive Sacral spine : Severe tenderness over the Sacroiliac joint: right side / left side Range of motion: Flexion of the lumbar spine <60 degrees Range of motion: Extension of the lumbar spine <20 degrees Gaenslen's Test positive right side / left side Dominga test: positive right side / left side Thigh Thrust Test positive right side / left side Sacral Thrust Test positive right side / left side Assessment and plan: Chronic LBP secondary to lumbar DDD, spondylosis with facet arthropathy without myelopathy Recommendation of RUCHI L5-S1 #3. May need a series of injections for optimal pain relief. Risks, benefits of procedure discussed and pt verbalized understanding. Admits to anticoagulant use or medical history of diabetes. Protocol for discontinuation/ continuation of medications robert procedure discussed. Minimal anesthesia provided, if clinically indicated, consisting of Versed and Fentanyl. All questions answered. I have spent less than 30 minutes on patient care today. Dr Muñoz was available by phone for the evaluation of this patient. The time was used to review the medical records including relevant urine studies and Prescription history (MAPs), review of the available imaging, evaluation and examination of the patient, coordination of care with the medical staff and if applicable referring physicians, as well as creation of the medical record PQRS Narrative: Hx Alcohol Use (MH) Yes: Occassional Home Medications: Ambulatory Orders Celecoxib [CeleBREX] 200 mg PO BID PRN 30 Days #60 cap 10/09/22 Controlled Substance Measures - Controlled Substance Measures Is patient prescribed a controlled substance at discharge?: No
== END ==
LOC: PNWHC3 09:43
PROVIDERS: ATTEND Specialist
DX: M51.36 Other intervertebral disc degeneration, lumbar region (principal); M47.816 Spondylosis without myelopathy or radiculopathy, lumbar region; G89.29 Other chronic pain
CPT/HCPCS: 99211

== ENCOUNTER 2023-06-11 06:11 | Day surgery (SDC) | payer BC ==
[2023-06-11] MEDS ORDERED: LACTATED RINGERS 1,000 ML IV SCH (06:41)
[2023-06-11 06:42] VITALS: RESP 16; TEMP 98.2
[2023-06-11] MEDS ORDERED: IOPAMIDOL M200 10 ML VIAL ONE (07:07)
[2023-06-11] MEDS ORDERED: methylPREDNISolone ACETATE 80 MG/ML 1 ML VIAL ONE (07:07)
--- NOTE | 2023-06-11 07:12 | P.PCN ---
Date of Procedure: 06/11/23 Procedure(s) Performed: PREOPERATIVE DIAGNOSIS: 1- Lumbar Degenerative Disc Diseases 2-Lumbar spondylosis with Facet arthropathy without myelopathy. POSTOPERATIVE DIAGNOSIS: 1-lumbar degenerative disc disease. 2-lumbar spondylosis with facet arthropathy without myelopathy. PROCEDURE 1. Lumbar epidural steroid injection under fluoroscopic guidance at the L5-S1 level. (Fluoroscopy imaging was available in radiology department) 2. Lumbar epidurogram. ANESTHESIA: Lidocaine 1% 3 and then only. EBL: Minimal PROCEDURE INDICATION: The patient with low back pain and radiculitis symptoms unresponsive to conservative treatment. Fluoroscopy was used to optimize visualization of the needle placement and to maximize safety. PROCEDURE DESCRIPTION / TECHNIQUE: The patient was seen and identified in the preoperative area. Risks, benefits, complications including but not limited to infections ,bleeding ,allergic reaction to the medications ,nerve damage and not complete pain releife , and alternatives were discussed with the patient. The patient agreed to proceed with the procedure and signed the consent, and vital signs were stable. Patient was taken to the OR and time out was completed. The patient was placed in the prone position on procedure table and a pillow was placed under the abdomen to reduce lumbar lordosis. The lumbosacral area was prepped and draped in the usual sterile fashion.ere closely monitored during the procedure. Vital signs was monitered during the entire procedure. Using anterior-posterior fluoroscopy, the L5-S1 interlaminar space was identified and the skin over this site was marked and then infiltrated with 1% lidocaine subcutaneously. Subsequently, a 20-gauge Tuohy epidural needle was inserted and advanced toward the epidural space using the ``Loss of resistance technique and guided by AP and lateral fluoroscopy. The correct needle position in the epidural space was verified with the injection of 2 mL of the water soluble contrast dye Isovue 200 contrast and observing an excellent epidurogram with the epidural spread of the dye, after negative aspiration for blood and CSF and in the absence of paresthesias. Again after negative aspiration, a 6 ml mixture containing 80 mg of Depo-medrol ( Preservetive Free ), and 2 ml of preservative free Normal Saline, and 2 ml of preservative free lidocaine 1% solution was injected and a washout of epidurogram was seen. Needle was withdrawn intact, skin was cleansed, and bandages were applied. COMPLICATIONS: None DISPOSITION / PLANS: The patient was placed in a supine position and transferred to the recovery area in a stable condition for observation. There was no evidence of lower extremity motor or sensory deficit after the procedure. Patient was discharged from the recovery room after meeting discharge criteria. Home discharge instructions were given to the patient by the staff. The patient was reexamined prior to discharge. The patient will schedule a follow up in the clinic in 2-4 weeks.
[2023-06-11 07:24] VITALS: PULSE 64
[2023-06-11 07:45] VITALS: BP 131/82
--- NOTE | 2023-06-11 08:22 | FL ---
Intraoperative/procedural fluoroscopic services were provided for lumbar epidural steroid injection. Total fluoroscopy time is 1.8 seconds with a total of 1 submitted image to PACS. Total DAP [id number] mG ym2. Please see the operative note for further details.
== END 2023-06-11 07:33 | disposition home or self-care (01) ==
LOC: ORPAIN 06:11
PROVIDERS: ATTEND Specialist
DX: M51.16 Intervertebral disc disorders with radiculopathy, lumbar region (principal); M47.26 Other spondylosis with radiculopathy, lumbar region
CPT/HCPCS: 62323; J1040; Q9966

== ENCOUNTER → 2023-07-01 | Outpatient (CLI) | payer BC ==
[2023-07-01 09:18] VITALS: BP 133/84; PULSE 95; RESP 15; TEMP 98.5
--- NOTE | 2023-07-01 14:41 | P.PAINPG ---
PQRS Measure Charge Sheet Comment: A 58 yr old male with a history of severe and chronic LBP secondary to lumbar DDD and spondylosis with facet arthropathy without myelopathy presents today for evaluation s/p RUCHI L5-S1 #3. Pt states he experienced 60 % pain relief x 2-3 wks s/p procedure. Pt also recalls he had an RFA of the BL L4-L5, L5-S1 in December 2022 where he experienced 80% pain relief x 6 mo s/p procedure. Pain level is provoked at 7/10 in intensity, constant, localized in the L lower lumbar spine, predominantly axial, sharp in character without shooting pain. Pain is provoked by standing/ walking for periods of 20 min or more. Pain is alleviated with PT yrs ago which was ineffective, chiropractic treatments semi annually as needed, physician guided home stretches daily x 2 yrs, heat, medications, topical, injections, repositioning and rest. Oswestry axial pain score of 26. Interventional pain procedures completed include BL RFA L3-L5, Lumbar TPIs, RUCHI L5-S1 x3 Patient is currently on Celebrex Patient denies any side effects of the medication(s), denies excessive drowsiness or sleepiness, denies suicidal ideation and reports that the current pain medication is helping to control the pain and improve activities of daily living. Patient denies any motor or sensory deficits. Patient denies any fever or night sweats, denies any change in the bowel movements or urination. Physical Examination: -Constitutional: Cooperative. Not in acute distress . - Neurologic: Cranial nerve II to XII intact. No focal neurological def icits. - Psychatric: Alert & oriented x 3. Matching mood & appropriate affect. Judgment and insight intact. - Musculoskeletal: Cervical spine: Muscle bulk/ tone/ strength in the bilateral upper extremities normal Vertebral body tenderness to palpation over Spurling test positive Distraction test positive Facet loading test positive TTP Thoracic spine Muscle bulk / tone/ strength in the bilateral paraspinal muscles normal Vertebral body tender to palpation over Facet loading test positive TTP Lumbar spine: Motor bulk/ tone/ strength lower extremities , thigh and legs : 5/5 Deep tendon reflexes : Normal Knee Jerk. Normal Ankle Jerk . Vertebral body tenderness to palpation over L5 Guzman Test positive Lumbar Facet Loading Test positive over BL L4-L,5 L5-S1 Straight Leg Raise: positive at 30 degrees right side < left side Gaenslen's Test positive Sacral spine : Severe tenderness over the Sacroiliac joint: right side / left side Range of motion: Flexion of the lumbar spine <60 degrees Range of motion: Extension of the lumbar spine <20 degrees Gaenslen's Test positive right side / left side Dominga test: positive right side / left side Thigh Thrust Test positive right side / left side Sacral Thrust Test positive right side / left side Assessment and plan: Chronic LBP secondary to lumbar DDD, spondylosis with facet arthropathy without myelopathy Recommendation of BL RFA L4-L5, L5-S1. Pt exhibited substantial pain relief w prior RFA of the BL L3-L5 in December 2022. Risks, benefits of procedure discussed and pt verbalized understanding. Admits to anticoagulant use or medical history of diabetes. Protocol for discontinuation/ continuation of medications robert procedure discussed. Minimal anesthesia provided, if clinically indicated, consisting of Versed and Fentanyl. All questions answered. I have spent less than 30 minutes on patient care today. Dr Muñoz was available by phone for the evaluation of this patient. The time was used to review the medical records including relevant urine studies and Prescription history (MAPs), review of the available imaging, evaluation and examination of the patient, coordination of care with the medical staff and if applicable referring physicians, as well as creation of the medical record PQRS Narrative: Hx Alcohol Use (MH) Yes: Occassional Home Medications: Ambulatory Orders Celecoxib [CeleBREX] 200 mg PO BID PRN 30 Days #60 cap 10/09/22 Controlled Substance Measures - Controlled Substance Measures Is patient prescribed a controlled substance at discharge?: No
== END ==
LOC: PNWHC3 08:31
PROVIDERS: ATTEND Specialist
DX: M51.37 Other intervertebral disc degeneration, lumbosacral region (principal); M47.817 Spondylosis without myelopathy or radiculopathy, lumbosacral region; G89.29 Other chronic pain
CPT/HCPCS: 99211

== ENCOUNTER 2023-07-21 10:41 | Day surgery (SDC) | payer BC ==
[2023-07-21] MEDS ORDERED: LACTATED RINGERS 1,000 ML IV SCH (11:03)
[2023-07-21 11:27] VITALS: TEMP 97.2
[2023-07-21] MEDS ORDERED: ROPIVACAINE 5MG/ML 20ML VIAL ONE (11:45)
[2023-07-21] MEDS ORDERED: methylPREDNISolone ACETATE 40 MG/ML 1 ML VIAL ONE (11:45)
[2023-07-21] MEDS ORDERED: MIDAZOLAM 2 MG/2 ML VIAL ONE (11:45)
[2023-07-21] MEDS ORDERED: fentaNYL (PF) 50 MCG/ML 2 ML AMP ONE (11:45)
--- NOTE | 2023-07-21 12:14 | P.PCN ---
Date of Procedure: 07/21/23 Procedure(s) Performed: PREOPERATIVE DIAGNOSIS: 1-Lumbar Spondylosis with Facet Arthropathy without myelopathy. 2- Lumber degenerative disc disease. POSTOPERATIVE DIAGNOSIS: 1- Lumbar Spondylosis with Facet Arthropathy without myelopathy. 2- Lumber degenerative disc disease. PROCEDURES : Bilateral Radiofrequency thermocoagulation, L3 , L4 , and L5 medial branch, with fluoroscopic guidance (fluoroscopy images available in the radiology department) ( to denervate the facet joint at bilateral L4-5 ,and L5-S1 levels ). ANESTHESIA: Moderate sedation with Versed 2 mg and fentanyl 100 g, (sedation start at 11:50 ,ended at 12:11 ) EBL: Minimal PROCEDURE INDICATION: The patient with low back pain secondary to lumbar facet arthropathy who had more than 50% relief of her pain with previous diagnostic lumbar medial branch block with bupivacaine. PROCEDURE DESCRIPTION / TECHNIQUE: The patient was seen and identified in the preoperative area. Risks, benefits, complications, including but not limited to risk of infection ,bleeding , allergic reactions to the medications and no complete pain releife , and alternatives were discussed with the patient, the patient agreed to proceed with the procedure and signed the consent. IV was started. Vital signs remained stable throughout the procedure. Patient was taken to the OR and time out was completed. The patient was placed in the prone position on the procedure table. The lumber area was prepped and draped in the usual sterile fashion. . Vital signs were closely monitored during the procedure .IV sedation was used during the procedure to decrease patients anxiety. Using AP and then oblique fluoroscopy, the ``eye of the Paulino dog corresponding to the connection between the superior and transverse articular processes of right L3, L4, and L5 were identified, marked, and localized with 1% lidocaine. Subsequently, a 18 [id number] radiofrequency cannula with a 10- mm active tip was advanced guided by fluoroscopy to each of the``eyes of the Paulino dog at right L3, L4, and L5. Each site then underwent sensory testing at 50 Hz and 0 to 1 volt and motor testing at 2.5 Hz and 0 to 3 volt with local stimulation, but no radicular symptoms down the legs. Thereafter each sites underwent radiofrequency thermocoagulation at 80 degrees celsius for 90 seconds after injecting 0.5 ml of PF Ropivacaine 1ml, then after the thermocoagulation done , 1 ml of the block solution containing Depo-Medrol 20 mg and 3 ml of Ropivacaine 0.5% was injected at the right L3 , L4 , and L5 , levels after negative aspiration of CSF and blood and with no paresthesias. Cannulas were retracted while injecting lidocaine 1% until the needle is out. The same procedure was repeated at the level of Left L3, L4, and L5 levels. At the end of the procedure, the skin was cleansed and bandages were applied. COMPLICATIONS: No acute complications. DISPOSITION / PLANS: The patient was placed in a supine position and transferred to the recovery area in a stable condition for observation and was discharged from the recovery room after meeting discharge criteria. Home discharge instructions given to the patient by the staff. The patient was reexamined prior to discharge. The patient will schedule a follow up in the clinic in 2-4 weeks.
[2023-07-21] MEDS ORDERED: LACTATED RINGERS 1,000 ML IV ONE (12:20)
[2023-07-21 13:03] VITALS: BP 120/79; PULSE 60; RESP 15
--- NOTE | 2023-07-21 19:31 | FL ---
EXAMINATION TYPE: FL guided pain mgmt statistic DATE OF EXAM: 07/21/2023 FLUOROSCOPY Fluoroscopy time of 11 seconds was used during bilateral lumbar radiofrequency ablation. 6 image/s d ocument/s the procedure. 0.75487 mGycm2 DAP
== END 2023-07-21 12:53 | disposition home or self-care (01) ==
LOC: ORPAIN 10:41
PROVIDERS: ATTEND Specialist
DX: M47.816 Spondylosis without myelopathy or radiculopathy, lumbar region (principal); M51.36 Other intervertebral disc degeneration, lumbar region
CPT/HCPCS: 64635; 64636 ×2; J2250; J1030; J3010; J2795

== ENCOUNTER → 2023-10-07 | Outpatient (CLI) | payer BC ==
[2023-10-07 08:20] VITALS: BP 137/89; PULSE 90; RESP 16; TEMP 96.9
--- NOTE | 2023-10-07 14:46 | P.PAINPG ---
PQRS Measure Charge Sheet Comment: A 58 yr old male with a history of severe and chronic LBP secondary to lumbar DDD and spondylosis with facet arthropathy without myelopathy presents today for evaluation s/p BL RFA L3-L5. Pt states he experienced 80 % pain reliefs s/p procedure. Pain level is provoked at 8/10 in intensity, constant, localized in the L lower lumbar spine, predominantly axial, sharp in character without shooting pain. Pain is provoked by standing/ walking for periods of 20 min or more. Pain is alleviated with injections, PT yrs ago which was ineffective, chiropractic treatments semi annually as needed, physician guided home stretches daily x 2.5 yrs, heat, medications, topical, injections, repositioning and rest. Oswestry axial pain score of 25. Interventional pain procedures completed include BL RFA L3-L5 x2 (December 2022, Jul 21 2023), Lumbar TPIs, RUCHI L5-S1 x3 Patient is currently on Celebrex Patient denies any side effects of the medication(s), denies excessive drowsiness or sleepiness, denies suicidal ideation and reports that the current pain medication is helping to control the pain and improve activities of daily living. Patient denies any motor or sensory deficits. Patient denies any fever or night sweats, denies any change in the bowel movements or urination. Physical Examination: -Constitutional: Cooperative. Not in acute distress . - Neurologic: Cranial nerve II to XII intact. No focal neurological deficits. - Psychatric: Alert & oriented x 3. Matching mood & appropriate affect. Judgment and insight intact. - Musculoskeletal: Cervical spine: Muscle bulk/ tone/ strength in the bilateral upper extremities normal Vertebral body tenderness to palpation over Spurling test positive Distraction test positive Facet loading test positive TTP Thoracic spine Muscle bulk / tone/ strength in the bilateral paraspinal muscles normal Vertebral body tender to palpation over Facet loading test positive TTP Lumbar spine: Motor bulk/ tone/ strength lower extremities , thigh and legs : 5/5 Deep tendon reflexes : Normal Knee Jerk. Normal Ankle Jerk . Vertebral body tenderness to palpation over L5 Guzman Test positive Lumbar Facet Loading Test positive over BL L4-L5, L5-S1 Straight Leg Raise: positive at 30 degrees right side < left side Gaenslen's Test positive Sacral spine : Severe tenderness over the Sacroiliac joint: right side / left side Range of motion: Flexion of the lumbar spine <60 degrees Range of motion: Extension of the lumbar spine <20 degrees Gaenslen's Test positive right side / left side Dominga test: positive right side / left side Thigh Thrust Test positive right side / left side Sacral Thrust Test positive right side / left side Assessment and plan: Chronic LBP secondary to lumbar DDD, spondylosis with facet arthropathy without myelopathy Recommendation of PT x 6 wks and home TENS unit use M51.36. Would benefit from Methylprednisone 4mg dose taper and Diclofenac gel . All questions answered. I have spent less than 30 minutes on patient care today. Dr Muñoz was available by phone for the evaluation of this patient. The time was used to review the medical records including relevant urine studies and Prescription history (MAPs), review of the available imaging, evaluation and examination of the patient, coordination of care with the medical staff and if applicable referring physicians, as well as creation of the medical record - Pain Location Bilateral Lower Back Non-Pharmacological Interventions: Heat, Home Exercise, Inactivity, Physical Therapy, Position/Reposition, Sitting, Stretching Pharmacological Interventions: Block, Epidural, PRN Medication, Topical Medication PQRS Narrative: Hx Alcohol Use (MH) Yes: Occassional Home Medications: Ambulatory Orders Celecoxib [CeleBREX] 200 mg PO BID PRN 30 Days #60 cap 10/09/22 Diclofenac Sodium Gel [Voltaren 1% Gel] 100 gm TOPICAL BID 30 Days #1 each 10/07/23 methylPREDNISolone Dose Pack [Medrol Dose Pack] 4 mg PO DIRECTED 6 Days #21 tab 10/07/23 Controlled Substance Measures - Controlled Substance Measures Is patient prescribed a controlled substance at discharge?: No
== END ==
LOC: PNWHC3 07:30
PROVIDERS: ATTEND Specialist
DX: M51.37 Other intervertebral disc degeneration, lumbosacral region (principal); M47.817 Spondylosis without myelopathy or radiculopathy, lumbosacral region; G89.29 Other chronic pain
CPT/HCPCS: 99211

== ENCOUNTER → 2023-10-27 | Day surgery (SDC) | payer BC ==
[~2023-10-27] MED LIST changes: +IOPAMIDOL M300 15ML VIAL ONE; -LIDOCAINE 1% (10MG/ML) FOR IV START INTRADERMA PRN; +ROPIVACAINE 5MG/ML 20ML VIAL ONE; +methylPREDNISolone ACETATE 80 MG/ML 1 ML VIAL ONE
[2023-10-27 08:46] VITALS: RESP 16; TEMP 97
--- NOTE | 2023-10-27 10:00 | P.PCN ---
Description of Procedure: PREOPERATIVE DIAGNOSIS: 1- Lumbar Degenerative Disc Diseases 2-Lumbar spondylosis with Facet arthropathy without myelopathy. 3-lumbar spinal stenosis POSTOPERATIVE DIAGNOSIS: 1-lumbar degenerative disc disease. 2-lumbar spondylosis with facet arthropathy without myelopathy. 3-lumbar spinal stenosis. PROCEDURE Injection of radio contrast material into L5-S1 interspace, interpretation of epidurogram, injection of steroid at L5-S1 epidural space under fluoroscopic guidance. ANESTHESIA: Lidocaine 1% subcutaneously. In OR continuous pulse ox, EKG, blood pressure and verbal communication was maintained with the patient. EBL: Minimal PROCEDURE INDICATION: Before the procedure were discussed with the patient detailed procedure, alternatives, complications including infection, bleeding, nerve damage, paralysis all of which could be permanent. Patient understands and all questions were answered. PROCEDURE DESCRIPTION : After getting consent, patient in OR in prone position. Back was prepped with chlorhexidine and draped in sterile fashion. After injecting 10 mL of 1% lidocaine subcutaneously, a 20-gauge Tuohy needle was introduced at L5-S1 interspace with loss of resistance technique using a syringe filled with air. Negative CSF, negative blood, negative paresthesia. Needle position was confirmed with AP and lateral view of the fluoroscope. After repeat negative aspiration 2 mL of Omnipaque 200 water soluble contrast was injected. Contrast was noted in the epidural space. No contrast was noted into intrathecal or intravascular space. After repeat negative aspiration 6 mL solution was injected intermittently which consists of 5 mL of preservative-free normal saline mixed with 1 mL of 80 mg Depo-Medrol. Needle was withdrawn intact. Skin was cleansed and Band-Aids was applied. DISPOSITION / PLANS: The patient tolerated the procedure well. No complication. The patient was placed in a supine position and transferred to the recovery area in a stable condition for observation. There was no evidence of lower extremity motor or sensory deficit after the procedure. Patient was discharged from the recovery room after meeting discharge criteria. Home discharge instructions were given to the patient by the staff. The patient was reexamined prior to discharge. The patient will schedule a follow up in the clinic in 2-4 weeks.
[2023-10-27 10:34] VITALS: BP 118/76; PULSE 58
--- NOTE | 2023-10-28 10:10 | FL ---
EXAMINATION TYPE: FL guided pain mgmt statistic DATE OF EXAM: 10/27/2023 FLUOROSCOPY Fluoroscopy time of 11 seconds was used during lumbar epidural steroid injection. 2 image/s document /s the procedure. 0.90191 mGycm2 DAP
== END ==
LOC: ORPAIN 07:41
PROVIDERS: ATTEND Pain Medicine Interventional Pain Medicine
DX: M51.36 Other intervertebral disc degeneration, lumbar region (principal); M47.816 Spondylosis without myelopathy or radiculopathy, lumbar region; M48.061 Spinal stenosis, lumbar region without neurogenic claudication
CPT/HCPCS: 62323; J1040; Q9967; J2795

== ENCOUNTER → 2023-11-18 | Outpatient (CLI) | payer BC ==
[2023-11-18 09:15] VITALS: BP 118/80; PULSE 98; RESP 15; TEMP 98.7
--- NOTE | 2023-11-18 14:25 | P.PAINPG ---
PQRS Measure Charge Sheet Comment: A 58 yr old male with a history of severe and chronic LBP secondary to lumbar DDD and spondylosis with facet arthropathy without myelopathy presents today for evaluation s/p RUCHI L5-S1. Pt states he experienced 60 % pain relief x 3 wks s/p procedure. Pain level is provoked at 6 /10 in intensity, constant, localized in the L lower lumbar spine, predominantly axial, sharp in character without shooting pain. Pain is provoked by standing/ walking for periods of 20 min or more. Pain is alleviated with injections, PT x 6 wks at home via online video, chiropractic treatments semi annually as needed, physician guided home stretches daily x 3 yrs, heat, medications, topical, injections, repositioning and rest. Oswestry axial pain score of 25. Interventional pain procedures completed include BL RFA L3-L5 x2 (December 2022, Jul 21 2023), Lumbar TPIs, RUCHI L5-S1 x4 Patient is currently on Celebrex (on & off) Patient denies any side effects of the medication(s), denies excessive drowsiness or sleepiness, denies suicidal ideation and reports that the current pain medication is helping to control the pain and improve activities of daily living. Patient denies any motor or sensory deficits. Patient denies any fever or night sweats, denies any change in the bowel movements or urination. Physical Examination: -Constitutional: Cooperative. Not in acute distress . - Neurologic: Cranial nerve II to XII intact. No focal neurological deficits. - Psychatric: Alert & oriented x 3. Matching mood & appropriate affect. Judgment and insight intact. - Musculoskeletal: Cervical spine: Muscle bulk/ tone/ strength in the bilateral upper extremities normal Vertebral body tenderness to palpation over Spurling test positive Distraction test positive Facet loading test positive TTP Thoracic spine Muscle bulk / tone/ strength in the bilateral paraspinal muscles normal Vertebral body tender to palpation over Facet loading test positive TTP Lumbar spine: Motor bulk/ tone/ strength lower extremities , thigh and legs : 5/5 Deep tendon reflexes : Normal Knee Jerk. Normal Ankle Jerk . Vertebral body tenderness to palpation over L5 Guzman Test positive Lumbar Facet Loading Test positive over BL L4-L5, L5-S1 Straight Leg Raise: positive at 30 degrees right side < left side Gaenslen's Test positive Sacral spine : Severe tenderness over the Sacroiliac joint: right side / left side Range of motion: Flexion of the lumbar spine <60 degrees Range of motion: Extension of the lumbar spine <20 degrees Gaenslen's Test positive right side / left side Dominga test: positive right side / left side Thigh Thrust Test positive right side / left side Sacral Thrust Test positive right side / left side Assessment and plan: Chronic LBP secondary to lumbar DDD, spondylosis with facet arthropathy without myelopathy Recommendation of follow up w Dr Fairbanks to explore additional treatment options. Will use the TENS unit and take Celebrex more regularly. All questions answered. I have spent less than 30 minutes on patient care today. Dr Muñoz was available by phone for the evaluation of this patient. The time was used to review the medical records including relevant urine studies and Prescription history (MAPs), review of the available imaging, evaluation and examination of the patient, coordination of care with the medical staff and if applicable referring physicians, as well as creation of the medical record PQRS Narrative: Hx Alcohol Use (MH) Yes: Occassional Home Medications: Ambulatory Orders Celecoxib [CeleBREX] 200 mg PO BID PRN 30 Days #60 cap 10/09/22 Controlled Substance Measures - Controlled Substance Measures Is patient prescribed a controlled substance at discharge?: No
== END ==
LOC: PNWHC3 08:11
PROVIDERS: ATTEND Specialist
DX: M51.36 Other intervertebral disc degeneration, lumbar region (principal); M47.816 Spondylosis without myelopathy or radiculopathy, lumbar region; G89.29 Other chronic pain
CPT/HCPCS: 99211

== ENCOUNTER → 2023-12-29 | Outpatient (CLI) | payer BC ==
--- NOTE | 2023-12-30 12:42 | XR ---
EXAMINATION TYPE: XR chest 2V DATE OF EXAM: 12/29/2023 COMPARISON: None HISTORY: 58-year-old male R05.9, unspecified cough TECHNIQUE: Frontal and lateral views FINDINGS: Heart upper limits of normal in size. Mild interstitial prominence. Mild hyperinflation. No consolida tion or pleural effusion. IMPRESSION: Possible underlying COPD. No acute process seen.
== END | disposition home or self-care (01) ==
LOC: RADXRMAIN 16:01
PROVIDERS: ATTEND Family Medicine
DX: R05.9 Cough, unspecified (principal)
CPT/HCPCS: 71046

== ENCOUNTER → 2024-01-20 | Outpatient (CLI) | payer BC ==
[2024-01-20 11:22] VITALS: BP 126/92; RESP 16
--- NOTE | 2024-01-20 15:13 | P.PAINPG ---
PQRS Measure Charge Sheet Comment: A 58 yr old male with a history of severe and chronic LBP secondary to lumbar DDD and spondylosis with facet arthropathy without myelopathy presents today for evaluation . Pt underwent a BL RFA L3-L5 on Jul 21 2023 where he experienced 60% pain relief x 6 mo s/p procedure. Pain level is provoked at 6 /10 in intensity, constant, localized in the lower lumbar spine, predominantly axial, sharp in character w shooting pain L & R of midline. Pain is provoked by standing/ walking for periods of 15 min or more. Pain is alleviated with injections, PT x 6 wks at home via online video, chiropractic treatments semi annually as needed, physician guided home stretches daily since 2020, heat, medications, topical, injections, repositioning and rest. Oswestry axial pain score of 26. Interventional pain procedures completed include BL RFA L3-L5 x2 (December 2022, Jul 21 2023), Lumbar TPIs, RUCHI L5-S1 x4 Patient is currently on Celebrex (on & off) Patient denies any side effects of the medication(s), denies excessive drowsiness or sleepiness, denies suicidal ideation and reports that the current pain medication is helping to control the pain and improve activities of daily living. Patient denies any motor or sensory deficits. Patient denies any fever or night sweats, denies any change in the bowel movements or urination. Physical Examination: -Constitutional: Cooperative. Not in acute distress . - Neurologic: Cranial nerve II to XII intact. No focal neurological deficits. - Psychatric: Alert & oriented x 3. Matching mood & appropriate affect. Judgment and insight intact. - Musculoskeletal: Cervical spine: Muscle bulk/ tone/ strength in the bilateral upper extremities normal Vertebral body tenderness to palpation over Spurling test positive Distraction test positive Facet loading test positive TTP Thoracic spine Muscle bulk / tone/ strength in the bilateral paraspinal muscles normal Vertebral body tender to palpation over Facet loading test positive TTP Lumbar spine: Motor bulk/ tone/ strength lower extremities , thigh and legs : 5/5 Deep tendon reflexes : Normal Knee Jerk. Normal Ankle Jerk . Vertebral body tenderness to palpation over L5 Guzman Test positive Lumbar Facet Loading Test positive over BL L4-L5, L5-S1 Straight Leg Raise: positive at 30 degrees right side < left side Gaenslen's Test positive Sacral spine : Severe tenderness over the Sacroiliac joint: right side / left side Range of motion: Flexion of the lumbar spine <60 degrees Range of motion: Extension of the lumbar spine <20 degrees Gaenslen's Test positive right side / left side Dominga test: positive right side / left side Thigh Thrust Test positive right side / left side Sacral Thrust Test positive right side / left side Assessment and plan: Chronic LBP secondary to lumbar DDD, spondylosis with facet arthropathy without myelopathy Recommendation of BL RFA L3-L5. Pt exhibited substantial pain relief w prior BL RFA of the lumbar spine. Risk, benefits of procedure discussed and pt verbalized understanding. Protocol for discontinuation/ continuation of medications robert procedure discussed. Minimal anesthesia including Fentanyl and Versed if clinically indicated. All questions answered. I have spent less than 30 minutes on patient care today. Dr Muñoz was available by phone for the evaluation of this patient. The time was used to review the medical records including relevant urine studies and Prescription history (MAPs), review of the available imaging, evaluation and examination of the patient, coordination of care with the medical staff and if applicable referring physicians, as well as creation of the medical record PQRS Narrative: Hx Alcohol Use (MH) Yes: Occassional Home Medications: Ambulatory Orders Celecoxib [CeleBREX] 200 mg PO BID PRN 30 Days #60 cap 10/09/22 Controlled Substance Measures - Controlled Substance Measures Is patient prescribed a controlled substance at discharge?: No
== END ==
LOC: PNWHC3 08:42
PROVIDERS: ATTEND Specialist
DX: M51.36 Other intervertebral disc degeneration, lumbar region (principal); M47.816 Spondylosis without myelopathy or radiculopathy, lumbar region
CPT/HCPCS: 99211

== ENCOUNTER 2024-02-16 06:43 | Day surgery (SDC) | payer BC ==
[2024-02-15 09:38] VITALS: BMI 32.4
[2024-02-16 07:10] VITALS: TEMP 97.3
[2024-02-16] MEDS: IV FLUID CONTINUATION 1,000 ML IV ONE ×2 (07:15→08:17)
[2024-02-16] MEDS: LACTATED RINGERS 1,000 ML IV SCH (07:16)
[2024-02-16] MEDS ORDERED: MIDAZOLAM 2 MG/2 ML VIAL ONE (07:48)
[2024-02-16] MEDS ORDERED: methylPREDNISolone ACETATE 40 MG/ML 1 ML VIAL ONE (07:48)
[2024-02-16] MEDS ORDERED: fentaNYL (PF) 50 MCG/ML 2 ML AMP ONE (07:48)
[2024-02-16] MEDS ORDERED: ROPIVACAINE 5MG/ML 20ML VIAL ONE (07:48)
--- NOTE | 2024-02-16 08:13 | P.PCN ---
Date of Procedure: 02/16/24 Procedure(s) Performed: PREOPERATIVE DIAGNOSIS: 1-Lumbar Spondylosis with Facet Arthropathy without myelopathy. 2- Lumber degenerative disc disease. POSTOPERATIVE DIAGNOSIS: 1- Lumbar Spondylosis with Facet Arthropathy without myelopathy. 2- Lumber degenerative disc disease. PROCEDURES : Bilateral Radiofrequency thermocoagulation, L3 , L4 , and L5 medial branch, with fluoroscopic guidance (fluoroscopy images available in the radiology department) ( to denervate the facet joint at bilateral L4-5 ,and L5-S1 levels ). ANESTHESIA: Moderate sedation with Versed 2 mg and fentanyl 100 g, (sedation start at 07:48 ,ended at 08:11 ) EBL: Minimal PROCEDURE INDICATION: The patient with low back pain secondary to lumbar facet arthropathy who had more than 50% relief of her pain with previous diagnostic lumbar medial branch block with bupivacaine. PROCEDURE DESCRIPTION / TECHNIQUE: The patient was seen and identified in the preoperative area. Risks, benefits, complications, including but not limited to risk of infection ,bleeding , allergic reactions to the medications and no complete pain releife , and alternatives were discussed with the patient, the patient agreed to proceed with the procedure and signed the consent. IV was started. Vital signs remained stable throughout the procedure. Patient was taken to the OR and time out was completed. The patient was placed in the prone position on the procedure table. The lumber area was prepped and draped in the usual sterile fashion. . Vital signs were closely monitored during the procedure .IV sedation was used during the procedure to decrease patients anxiety. Using AP and then oblique fluoroscopy, the ``eye of the Paulino dog corresponding to the connection between the superior and transverse articular processes of right L3, L4, and L5 were identified, marked, and localized with 1% lidocaine. Subsequently, a 18 guage ( Venom ) 100-mm radiofrequency cannula with a 10-mm active tip was advanced guided by fluoroscopy to each of the``eyes of the Paulino dog at right L3, L4, and L5. Each site then underwent sensory testing at 50 Hz and 0 to 1 volt and motor testing at 2.5 Hz and 0 to 3 volt with local stimulation, but no radicular symptoms down the legs. Thereafter each sites underwent radiofrequency thermocoagulation at 80 degrees celsius for 90 seconds after injecting 0.5 ml of PF Ropivacaine 1ml, then after the thermocoagulation done , 1 ml of the block solution containing Depo-Medrol 20 mg and 3 ml of Ropivacaine 0.5% was injected at the right L3 , L4 , and L5 , levels after negative aspiration of CSF and blood and with no paresthesias. Cannulas were retracted while injecting lidocaine 1% until the needle is out. The same procedure was repeated at the level of Left L3, L4, and L5 levels. At the end of the procedure, the skin was cleansed and bandages were applied. COMPLICATIONS: No acute complications. DISPOSITION / PLANS: The patient was placed in a supine position and transferred to the recovery area in a stable condition for observation and was discharged from the recovery room after meeting discharge criteria. Home discharge instructions given to the patient by the staff. The patient was reexamined prior to discharge. The patient will schedule a follow up in the clinic in 2-4 weeks.
[2024-02-16 08:33] VITALS: BP 123/78; PULSE 57; RESP 16
--- NOTE | 2024-02-16 08:38 | FL ---
EXAMINATION TYPE: FL guided pain mgmt statistic DATE OF EXAM: 02/16/2024 FLUOROSCOPY Fluoroscopy time of 21.3 seconds was used during lumbar radiofrequency ablation. 7 image/s document/ s the procedure. DAP 0.72803 mGycm2
== END 2024-02-16 08:47 | disposition home or self-care (01) ==
LOC: ORPAIN 06:43
PROVIDERS: ATTEND Specialist
DX: M47.816 Spondylosis without myelopathy or radiculopathy, lumbar region (principal); M51.36 Other intervertebral disc degeneration, lumbar region; Z79.1 Long term (current) use of non-steroidal anti-inflammatories (NSAID)
CPT/HCPCS: 64635; 64636 ×2; 99152; 99153; J2250; J3010; J2795; J1010

== ENCOUNTER → 2024-03-07 | Outpatient (CLI) | payer BC ==
[2024-03-07 08:43] VITALS: BP 122/81; PULSE 71; RESP 16
--- NOTE | 2024-03-07 15:00 | P.PAINPG ---
PQRS Measure Charge Sheet Comment: A 59 yr old male with a history of severe and chronic LBP secondary to lumbar DDD and spondylosis with facet arthropathy without myelopathy presents today for evaluation s/p BL RFA L4-L5/ L5-S1. Pt states he experienced 60% pain relief s/p procedure. Pain level is provoked at 6 /10 in intensity, intermittent, localized in the lower lumbar spine, predominantly axial, dull in character w occasional shooting pain L & R of midline. Pain is provoked by standing/ walking for periods of 15 min or more. Pain is alleviated with injections, PT x 6 wks at home via online video, chiropractic treatments semi annually as needed, physician guided home stretches daily since 2020, heat, medications, topical, injections, repositioning and rest. Oswestry axial pain score of 25. Interventional pain procedures completed include BL RFA L3-L5 x3 (December 2022, Jul 2023, Jan 2024), Lumbar TPIs, RUCHI L5-S1 x4 Patient is currently on Celebrex (on & off) Patient denies any side effects of the medication(s), denies excessive drowsiness or sleepiness, denies suicidal ideation and reports that the current pain medication is helping to control the pain and improve activities of daily living. Patient denies any motor or sensory deficits. Patient denies any fever or night sweats, denies any change in the bowel movements or urination. Physical Examination: -Constitutional: Cooperative. Not in acute distress . - Neurologic: Cranial nerve II to XII intact. No focal neurological deficits. - Psychatric: Alert & oriented x 3. Matching mood & appropriate affect. Judgment and insight intact. - Musculoskeletal: Cervical spine: Muscle bulk/ tone/ strength in the bilateral upper extremities normal Vertebral body tenderness to palpation over Spurling test positive Distraction test positive Facet loading test positive TTP Thoracic spine Muscle bulk / tone/ strength in the bilateral paraspinal muscles normal Vertebral body tender to palpation over Facet loading test positive TTP Lumbar spine: Motor bulk/ tone/ strength lower extremities , thigh and legs : 5/5 Deep tendon reflexes : Normal Knee Jerk. Normal Ankle Jerk . Vertebral body tenderness to palpation over L5 Guzman Test positive BL L5-S1 Lumbar Facet Loading Test positive over BL L4-L5, L5-S1 Straight Leg Raise: positive at 30 degrees right side < left side Gaenslen's Test positive Sacral spine : Severe tenderness over the Sacroiliac joint: right side / left side Range of motion: Flexion of the lumbar spine <60 degrees Range of motion: Extension of the lumbar spine <20 degrees Gaenslen's Test positive right side / left side Dominga test: positive right side / left side Thigh Thrust Test positive right side / left side Sacral Thrust Test positive right side / left side Assessment and plan: Chronic LBP secondary to lumbar radiculopathy, spondylosis with facet arthropathy without myelopathy Recommendation of BL TFESI L5-S1 #1. May need a series of injections for optimal pain relief. Risk, benefits of procedure discussed and pt verbalized understanding. Protocol for discontinuation/ continuation of medications robert procedure discussed. Minimal anesthesia including Fentanyl and Versed if clinically indicated. All questions answered. I have spent less than 30 minutes on patient care today. Dr Muñoz was available by phone for the evaluation of this patient. The time was used to review the medical records including relevant urine studies and Prescription history (MAPs), review of the available imaging, evaluation and examination of the patient, coordination of care with the medical staff and if applicable referring physicians, as well as creation of the medical record PQRS Narrative: Hx Alcohol Use (MH) Yes: Occassional Home Medications: Ambulatory Orders Celecoxib [CeleBREX] 200 mg PO BID PRN 30 Days #60 cap 10/09/22 Controlled Substance Measures - Controlled Substance Measures Is patient prescribed a controlled substance at discharge?: No
== END ==
LOC: PNWHC3 08:29
PROVIDERS: ATTEND Specialist
DX: M47.26 Other spondylosis with radiculopathy, lumbar region (principal)
CPT/HCPCS: 99211

== ENCOUNTER 2024-04-19 06:22 | Day surgery (SDC) | payer BC ==
[2024-04-14 11:06] VITALS: BMI 32.3
[~2024-04-19 06:22] MED LIST changes: -IOPAMIDOL M300 15ML VIAL ONE; -ROPIVACAINE 5MG/ML 20ML VIAL ONE; -methylPREDNISolone ACETATE 80 MG/ML 1 ML VIAL ONE
[2024-04-19 06:51] VITALS: TEMP 98.4
[2024-04-19] MEDS ORDERED: ROPIVACAINE 5MG/ML 20ML VIAL ONE (07:35)
[2024-04-19] MEDS ORDERED: DEXAMETHASONE SOD PHOSPHATE 10 MG/ML 1 ML VIAL ONE (07:35)
[2024-04-19] MEDS ORDERED: IOPAMIDOL M300 15ML VIAL ONE (07:35)
[2024-04-19 08:14] VITALS: BP 122/69; PULSE 58; RESP 17
--- NOTE | 2024-04-19 08:15 | P.PCN ---
Description of Procedure: PREOPERATIVE DIAGNOSIS: 1-Lumbar radiculopathy . 2-lumbar degenerative disc disease. 3-lumbar spondylosis with lumbar facet arthropathy without myelopathy POSTOPERATIVE DIAGNOSIS: 1-lumbar radiculopathy. 2-lumbar degenerative disc disease. 3-lumbar spondylosis with facet arthropathy without myelopathy PROCEDURE 1. Transforaminal epidural steroid injection under fluoroscopic guidance at BILATERAL L5-S1 level. (Fluoroscopy images stored on file in the radiology Department ) 2. Lumbar epidurogram . ANESTHESIA: Local with 1% lidocaine 5 ml. subcutaneously. Continuous pulse ox, EKG, blood pressure and verbal communication was maintained with the patient. EBL: Minimal PROCEDURE INDICATION: The patient with low back pain and radiculopathy symptoms unresponsive to conservative treatment. The patient was seen and identified in the preoperative area. Risks, benefits, complications, and alternatives were discussed with the patient. The patient agreed to proceed with the procedure and signed the consent. IV was started, and vital signs were stable. PROCEDURE DESCRIPTION / TECHNIQUE: After getting consent, patient was taken to the OR and time out was completed. The patient was placed in the prone position on procedure table and a pillow was placed under the abdomen to reduce lumbar lordosis. The lumbosacral area was prepped and draped in the usual sterile fashion. Critical pause was taken. After injecting 5 mL of plain 1% lidocaine subcutaneously, under oblique view of the fluoroscope, a 22-gauge spinal needle was introduced under the tunnel view of the fluoroscope on the RIGHT side and the needle was advanced so that the tip of the needle was at the posterior inferior quadrant of the intervertebral for amen at the lateral view of the fluoroscope and in the lateral third of the facet column in the AP view of the fluoroscope. Negative CSF, negative blood, negative paresthesia. After needle position confirmation by AP and cross table lateral view, 3 mL of Isovue-M 200 contrast was injected under continuous fluoroscope. No contrast was noted in the intrathecal or intravascular space. The epidurogram was noted. Again after repeated negative aspiration 2.5 mL solution was injected which consists 1.5 mL of normal saline mixed with 1 mL of 10 mg dexamethasone. Needle was removed . Same procedure was repeated at the LEFT side at same level , using contrast under continuous fluoroscopy and using same amount of dexamethasone. At the end of the procedure, skin was cleansed, and bandages were applied. DISPOSITION / PLANS: No complication. The patient tolerated the procedure well. The patient was placed in a supine position and transferred to the recovery area in a stable condition for observation. There was no evidence of lower extremity motor or sensory deficit after the procedure. Patient was discharged from the recovery room after meeting discharge criteria. Home discharge instru ctions were given to the patient by the staff. The patient was reexamined prior to discharge.
--- NOTE | 2024-05-17 18:20 | FL ---
EXAMINATION TYPE: FL guided pain mgmt statistic DATE OF EXAM: 04/19/2024 8:19 AM COMPARISON: Pre Operative Images if available both CT/MRI or plain film CLINICAL INDICATION: Male, 59 years old with history of TRANSFORAMINAL EPI; TECHNIQUE: FL guided pain mgmt statistic, multiple fluoroscopic images provided for procedure. Total fluoroscopy time: 43.9 seconds Total submitted images to PACS: 6 DAP: [id number] mGym2 Gycm2 uGym2 cGycm2 or equivalent. FINDINGS: IMPRESSION: 1. No evidence for intraoperative complication. 2. Please see the operative/procedural note for further details. [facility], , 05/17/2024 6:17 PM
== END 2024-04-19 08:25 | disposition home or self-care (01) ==
LOC: ORPAIN 06:22
PROVIDERS: ATTEND Pain Medicine Interventional Pain Medicine
DX: M47.26 Other spondylosis with radiculopathy, lumbar region (principal); M51.16 Intervertebral disc disorders with radiculopathy, lumbar region

== ENCOUNTER → 2024-05-05 | Outpatient (CLI) | payer BC ==
[2024-05-05 09:08] VITALS: BP 119/84; PULSE 63; RESP 17
--- NOTE | 2024-05-05 13:25 | P.PAINPG ---
PQRS Measure Charge Sheet Comment: A 59 yr old male with a history of severe and chronic LBP secondary to lumbar DDD and spondylosis with facet arthropathy without myelopathy presents today for evaluation s/p BL TFESI L5-S1 #1. Pt states he experienced 60% pain relief x 2 wks s/p procedure. Pain level is provoked at 4 /10 in intensity, intermittent, localized in the lower lumbar spine, predominantly axial, dull in character w occasional shooting pain L & R of midline. Pain is provoked by standing/ walking for periods of 15 min or more. Pain is alleviated with injections, PT x 6 wks at home via online video, chiropractic treatments semi annually as needed, physician guided home stretches daily since 2020, heat, medications, topical, i njections, repositioning and rest. Interventional pain procedures completed include BL RFA L3-L5 x3 (December 2022, Jul 2023, Jan 2024), Lumbar TPIs, RUCHI L5-S1 x4, BL TFESI L5-S1 x1 (Apr 2024) Patient is currently on Celebrex (on & off) Patient denies any side effects of the medication(s), denies excessive drowsiness or sleepiness, denies suicidal ideation and reports that the current pain medication is helping to control the pain and improve activities of daily living. Patient denies any motor or sensory deficits. Patient denies any fever or night sweats, denies any change in the bowel movements or urination. Physical Examination: -Constitutional: Cooperative. Not in acute distress . - Neurologic: Cranial nerve II to XII intact. No focal neurological deficits. - Psychatric: Alert & oriented x 3. Matching mood & appropriate affect. Judgment and insight intact. - Musculoskeletal: Cervical spine: Muscle bulk/ tone/ strength in the bilateral upper extremities normal Vertebral body tenderness to palpation over Spurling test positive Distraction test positive Facet loading test positive TTP Thoracic spine Muscle bulk / tone/ strength in the bilateral paraspinal muscles normal Vertebral body tender to palpation over Facet loading test positive TTP Lumbar spine: Motor bulk/ tone/ strength lower extremities , thigh and legs : 5/5 Deep tendon reflexes : Normal Knee Jerk. Normal Ankle Jerk . Vertebral body tenderness to palpation over L5 Guzman Test positive BL L5-S1 Lumbar Facet Loading Test positive over BL L4-L5, L5-S1 Straight Leg Raise: positive at 30 degrees right side < left side Gaenslen's Test positive Sacral spine : Severe tenderness over the Sacroiliac joint: right side / left side Range of motion: Flexion of the lumbar spine <60 degrees Range of motion: Extension of the lumbar spine <20 degrees Gaenslen's Test positive right side / left side Dominga test: positive right side / left side Thigh Thrust Test positive right side / left side Sacral Thrust Test positive right side / left side Assessment and plan: Chronic LBP secondary to lumbar radiculopathy, spondylosis with facet arthropathy without myelopathy Will manage residual pain and may RTC on an as needed basis. All questions answered. I have spent less than 30 minutes on patient care today. Dr Muñoz was available by phone for the evaluation of this patient. The time was used to review the medical records including relevant urine studies and Prescription history (MAPs), review of the available imaging, evaluation and examination of the patient, coordination of care with the medical staff and if applicable referring physicians, as well as creation of the medical record PQRS Narrative: Hx Alcohol Use (MH) Yes: Occassional Home Medications: Ambulatory Orders Celecoxib [CeleBREX] 200 mg PO BID PRN 30 Days #60 cap 10/09/22 Controlled Substance Measures - Controlled Substance Measures Is patient prescribed a controlled substance at discharge?: No
== END ==
LOC: PNWHC3 08:38
PROVIDERS: ATTEND Specialist
DX: M54.16 Radiculopathy, lumbar region
CPT/HCPCS: 99211

== ENCOUNTER → 2024-06-29 | Outpatient (CLI) | payer BC ==
[2024-06-29 07:56] VITALS: BP 112/75; PULSE 60; RESP 16
--- NOTE | 2024-06-29 16:01 | P.PAINPG ---
PQRS Measure Charge Sheet History and Exam Findings: All other causes of pain ruled out Comment: A 59 yr old male with a history of severe and chronic LBP secondary to radiculopathy, spondylosis with facet arthropathy without myelopathy presents today for evaluation. Pain level is provoked at 7 /10 in intensity, inte rmittent, localized in the lower lumbar spine, predominantly axial, dull in character w occasional shooting pain L & R of midline. Pain is provoked by standing/ walking for periods > 15 min. Pain is alleviated with injections, PT x 6 wks at home via online video, chiropractic treatments semi annually as needed, physician guided home stretches daily since 2020, heat, medications, topical, injections, repositioning and rest. Interventional pain procedures completed include BL RFA L3-L5 x3 (December 2022, Jul 2023, Jan 2024), Lumbar TPIs, RUCHI L5-S1 x4, BL TFESI L5-S1 x1 (Apr 2024) Patient is currently on Celebrex Patient denies any side effects of the medication(s), denies excessive drowsiness or sleepiness, denies suicidal ideation and reports that the current pain medication is helping to control the pain and improve activities of daily living. Patient denies any motor or sensory deficits. Patient denies any fever or night sweats, denies any change in the bowel movements or urination. Physical Examination: -Constitutional: Cooperative. Not in acute distress . - Neurologic: Cranial nerve II to XII intact. No focal neurological deficits. - Psychatric: Alert & oriented x 3. Matching mood & appropriate affect. Judgment and insight intact. - Musculoskeletal: Cervical spine: Muscle bulk/ tone/ strength in the bilateral upper extremities normal Vertebral body tenderness to palpation over Spurling test positive Distraction test positive Facet loading test positive TTP Thoracic spine Muscle bulk / tone/ strength in the bilateral paraspinal muscles normal Vertebral body tender to palpation over Facet loading test positive TTP Lumbar spine: Motor bulk/ tone/ strength lower extremities , thigh and legs : 5/5 Deep tendon reflexes : Normal Knee Jerk. Normal Ankle Jerk . Vertebral body tenderness to palpation over L5 Guzman Test positive BL L5-S1 Lumbar Facet Loading Test positive over BL L4-L5, L5-S1 Straight Leg Raise: positive at 30 degrees right side < left side Gaenslen's Test positive Sacral spine : Severe tenderness over the Sacroiliac joint: right side / left side Range of motion: Flexion of the lumbar spine <60 degrees Range of motion: Extension of the lumbar spine <20 degrees Gaenslen's Test positive right side / left side Dominga test: positive right side / left side Thigh Thrust Test positive right side / left side Sacral Thrust Test positive right side / left side Assessment and plan: Chronic LBP secondary to radiculopathy, spondylosis with facet arthropathy without myelopathy Recommendation of RUCHI L5-S1 #2. Risks, benefits of procedure discussed and pt verbalized understanding. Protocol for discontinuation/ continuation of medications robert procedure discussed. All questions answered. I have spent less than 30 minutes on patient care today. Dr Muñoz was available by phone for the evaluation of this patient. The time was used to review the medical records including relevant urine studies and Prescription history (MAPs), review of the available imaging, evaluation and examination of the patient, coordination of care with the medical staff and if applicable referring physicians, as well as creation of the medical record PQRS Narrative: Hx Alcohol Use (MH) Yes: Occassional Home Medications: Ambulatory Orders Celecoxib [CeleBREX] 200 mg PO BID PRN 30 Days #60 cap 10/09/22 Controlled Substance Measures - Controlled Substance Measures Is patient prescribed a controlled substance at discharge?: No
== END ==
LOC: PNWHC3 07:43
PROVIDERS: ATTEND Specialist
DX: M47.27 Other spondylosis with radiculopathy, lumbosacral region (principal)
CPT/HCPCS: 99211

== ENCOUNTER 2024-07-19 06:31 | Day surgery (SDC) | payer BC ==
[2024-07-13 10:23] VITALS: BMI 32.5
[2024-07-19 06:45] VITALS: TEMP 98.1
[2024-07-19] MEDS ORDERED: IOPAMIDOL M200 10 ML VIAL ONE (07:20)
[2024-07-19] MEDS ORDERED: methylPREDNISolone ACETATE 80 MG/ML 1 ML VIAL ONE (07:20)
--- NOTE | 2024-07-19 07:31 | P.PCN ---
Date of Procedure: 07/19/24 Procedure(s) Performed: PREOPERATIVE DIAGNOSIS: 1- Lumbar Degenerative Disc Diseases 2-Lumbar spondylosis with Facet arthropathy without myelopathy. 3-lumbar radiculopathy POSTOPERATIVE DIAGNOSIS: 1-lumbar degenerative disc disease. 2-lumbar spondylosis with facet arthropathy without myelopathy. 3-lumbar radiculopathy PROCEDURE 1. Lumbar epidural steroid injection under fluoroscopic guidance at the L5-S1 level. (Fluoroscopy imaging was available in radiology department) 2. Lumbar epidurogram. ANESTHESIA: Lidocaine 1% 3 and then only. EBL: Minimal PROCEDURE INDICATION: The patient with low back pain and radiculitis symptoms unresponsive to conservative treatment. Fluoroscopy was used to optimize visualization of the needle placement and to maximize safety. PROCEDURE DESCRIPTION / TECHNIQUE: The patient was seen and identified in the preoperative area. Risks, benefits, complications including but not limited to infections ,bleeding ,allergic reaction to the medications ,nerve damage and not complete pain releife , and alternatives were discussed with the patient. The patient agreed to proceed with the procedure and signed the consent, and vital signs were stable. Patient was taken to the OR and time out was completed. The patient was placed in the prone position on procedure table and a pillow was placed under the abdomen to reduce lumbar lordosis. The lumbosacral area was prepped and draped in the usual sterile fashion.ere closely monitored during the procedure. Vital signs was monitered during the entire procedure. Using anterior-posterior fluoroscopy, the L5-S1 interlaminar space was identified and the skin over this site was marked and then infiltrated with 1% lidocaine subcutaneously. Subsequently, a 20-gauge Tuohy epidural needle was inserted and advanced toward the epidural space using the ``Loss of resistance technique and guided by AP and lateral fluoroscopy. The correct needle position in the epidural space was verified with the injection of 2 mL of the water soluble contrast dye Isovue 200 contrast and observing an excellent epidurogram with the epidural spread of the dye, after negative aspiration for blood and CSF and in the absence of paresthesias. Again after negative aspiration, a 6 ml mixture containing 80 mg of Depo-medrol ( Preservetive Free ), and 2 ml of preservative free Normal Saline, and 2 ml of preservative free lidocaine 1% solution was injected and a washout of epidurogram was seen. Needle was withdrawn intact, skin was cleansed, and bandages were applied. COMPLICATIONS: None DISPOSITION / PLANS: The patient was placed in a supine position and transferred to the recovery area in a stable condition for observation. There was no evidence of lower extremity motor or sensory deficit after the procedure. Patient was discharged from the recovery room after meeting discharge criteria. Home discharge instructions were given to the patient by the staff. The patient was reexamined prior to discharge. The patient will schedule a follow up in the clinic in 2-4 weeks.
[2024-07-19 07:34] VITALS: RESP 16
[2024-07-19 07:51] VITALS: BP 128/75; PULSE 63
--- NOTE | 2024-07-19 08:17 | FL ---
EXAMINATION TYPE: FL guided pain mgmt statistic DATE OF EXAM: 07/19/2024 FLUOROSCOPY 1.7 SEC FL .[id number] DAP DOSE One image submitted. Lumbar epidural injection. [facility], , 07/19/2024 8:14 AM
== END 2024-07-19 07:52 | disposition home or self-care (01) ==
LOC: ORPAIN 06:31
PROVIDERS: ATTEND Specialist
DX: M51.16 Intervertebral disc disorders with radiculopathy, lumbar region (principal); M47.26 Other spondylosis with radiculopathy, lumbar region
CPT/HCPCS: 62323; Q9966; J1010

== ENCOUNTER → 2024-07-27 | Outpatient (CLI) | payer BC ==
[2024-07-27 12:44] VITALS: BP 130/82; PULSE 60; RESP 18; TEMP 98.6
--- NOTE | 2024-07-27 14:44 | P.PAINPG ---
Objective - Vital Signs Vital signs: Intake & Output 07/26/24 07/27/24 07/27/24 18:59 06:59 18:59 Weight 220 kg PQRS Measure Charge Sheet Comment: A 59 yr old male w at side with a history of severe and chronic thoracic and lumbar > 2 yrs secondary to radiculopathy, spondylosis with facet arthropathy without myelopathy presents today for evaluation s/p RUCHI L5-S1 #2 approximately 1 week ago which he still feels 70% pain relief. Pain level is provoked at 7 /10 in intensity, constant, localized in the thoracic spine, predominantly axial, achy in character w occasional shooting pain L & R of midline. Pain is provoked by standing/ walking for periods > 10-15 min. Pain is alleviated with injections, PT x 6 wks (thoracic and lumbar) at home via online video, chiropractic treatments semi annually as needed, physician guided home stretches daily since 2020 (thoracic and lumbar), heat, medications, topical, injections, repositioning and rest. Interventional pain procedures completed include BL RFA L3-L5 x3 (December 2022, Jul 2023, Jan 2024), Lumbar TPIs, RUCHI L5-S1 x4, BL TFESI L5-S1 x1 (Apr 2024) Patient is currently on Celebrex Patient denies any side effects of the medication(s), denies excessive drowsiness or sleepiness, denies suicidal ideation and reports that the current pain medication is helping to control the pain and improve activities of daily living. Patient denies any motor or sensory deficits. Patient denies any fever or night sweats, denies any change in the bowel movements or urination. Physical Examination: -Constitutional: Cooperative. Not in acute distress . - Neurologic: Cranial nerve II to XII intact. No focal neurological deficits. - Psychatric: Alert & oriented x 3. Matching mood & appropriate affect. Judgment and insight intact. - Musculoskeletal: Cervical spine: Muscle bulk/ tone/ strength in the bilateral upper extremities normal Vertebral body tenderness to palpation over Spurling test positive Distraction test positive Facet loading test positive TTP Thoracic spine Muscle bulk / tone/ strength in the bilateral paraspinal muscles normal Vertebral body tender to palpation over Facet loading test positive TTP Taut bands w twitch response over L T4-T12 Lumbar spine: Motor bulk/ tone/ strength lower extremities , thigh and legs : 5/5 Deep tendon reflexes : Normal Knee Jerk. Normal Ankle Jerk . Vertebral body tenderness to palpation over L5 Guzman Test positive BL L5-S1 Lumbar Facet Loading Test positive over BL L4-L5, L5-S1 Straight Leg Raise: positive at 30 degrees right side < left side Gaenslen's Test positive Sacral spine : Severe tenderness over the Sacroiliac joint: right side / left side Range of motion: Flexion of the lumbar spine <60 degrees Range of motion: Extension of the lumbar spine <20 degrees Gaenslen's Test positive right side / left side Dominga test: positive right side / left side Thigh Thrust Test positive right side / left side Sacral Thrust Test positive right side / left side Assessment and plan: Chronic thoracic & LBP secondary to radiculopathy, spondylosis with facet arthropathy without myelopathy Recommendation of lumbar x ray, PT integrated w therapeutic massage x 6 wks and L TPIs T4-T12 M54.14. Risks, benefits of procedure discussed and pt verbalized understanding. Protocol for discontinuation/ continuation of medications robert procedure discussed. All questions answered. I have spent less than 30 minutes on patient care today. Dr Muñoz was avail able by phone for the evaluation of this patient. The time was used to review the medical records including relevant urine studies and Prescription history (MAPs), review of the available imaging, evaluation and examination of the patient, coordination of care with the medical staff and if applicable referring physicians, as well as creation of the medical record - Pain Location Medial Back Non-Pharmacological Interventions: Inactivity PQRS Narrative: Hx Alcohol Use (MH) Yes: Occassional Home Medications: Ambulatory Orders Celecoxib [CeleBREX] 200 mg PO BID PRN 30 Days #60 cap 10/09/22 Controlled Substance Measures - Controlled Substance Measures Is patient prescribed a controlled substance at discharge?: No
== END ==
LOC: PNWHC3 12:27
PROVIDERS: ATTEND Specialist
DX: M47.25 Other spondylosis with radiculopathy, thoracolumbar region (principal)
CPT/HCPCS: 99211

== ENCOUNTER → 2024-07-27 | Outpatient (CLI) | payer BC ==
--- NOTE | 2024-07-28 11:07 | XR ---
EXAMINATION TYPE: XR thoracic spine 2V DATE OF EXAM: 07/27/2024 1:16 PM COMPARISON: None. CLINICAL INDICATION: Male, 59 years old with history of M54.14 XR THORACIC, TECHNIQUE: 3 view(s) obtained. FINDINGS: There are 12 thoracic type vertebral bodies. Pedicles are intact. Disc heights are preserved. Vertebr al body heights are preserved. Alignment appears preserved. IMPRESSION: 1. No acute osseous abnormality thoracic spine [facility], , 07/27/2024 4:01 PM
== END | disposition home or self-care (01) ==
LOC: RADXRMAIN 13:12
PROVIDERS: ATTEND Physician Assistant Medical
DX: M54.14 Radiculopathy, thoracic region (principal)
CPT/HCPCS: 72070

== ENCOUNTER → 2024-08-18 | Outpatient (CLI) | payer BC ==
[2024-08-18 09:56] VITALS: BP 140/87; PULSE 73; RESP 18; TEMP 98
--- NOTE | 2024-08-18 13:36 | P.PAINPG ---
Objective - Vital Signs Vital signs: Intake & Output 08/17/24 08/18/24 08/18/24 18:59 06:59 18:59 Weight 170 kg PQRS Measure Charge Sheet Comment: A 59 yr old male w at side with a history of severe and chronic thoracic and lumbar > 2 yrs secondary to radiculopathy, spondylosis with facet arthropathy without myelopathy presents today for evaluation. Pain level is provoked at 7 /10 in intensity, constant, localized in the thoracic spine, predominantly axial, achy in character w occasional shooting pain L & R of midline. Pain is provoked by standing/ walking for periods > 10-15 min. Pain is alleviated with injections, PT x 6 wks (thoracic and lumbar) at home via online video, chiropractic treatments semi annually as needed, physician guided home stretches daily since 2020 (thoracic and lumbar), heat, medications, topical, injections, repositioning and rest. Interventional pain procedures completed include BL RFA L3-L5 x3 (December 2022, Jul 2023, Jan 2024), Lumbar TPIs, RUCHI L5-S1 x4, BL TFESI L5-S1 x1 (Apr 2024) Patient is currently on Celebrex Patient denies any side effects of the medication(s), denies excessive drowsiness or sleepiness, denies suicidal ideation and reports that the current pain medication is helping to control the pain and improve activities of daily living. Patient denies any motor or sensory deficits. Patient denies any fever or night sweats, denies any change in the bowel movements or urination. Physical Examination: -Constitutional: Cooperative. Not in acute distress . - Neurologic: Cranial nerve II to XII intact. No focal neurological deficits. - Psychatric: Alert & oriented x 3. Matching mood & appropriate affect. Judgment and insight intact. - Musculoskeletal: Cervical spine: Muscle bulk/ tone/ strength in the bilateral upper extremities normal Vertebral body tenderness to palpation over Spurling test positive Distraction test positive Facet loading test positive TTP Thoracic spine Muscle bulk / tone/ strength in the bilateral paraspinal muscles normal Vertebral body tender to palpation over Facet loading test positive TTP Taut bands w twitch response over L T4-T12 Lumbar spine: Motor bulk/ tone/ strength lower extremities , thigh and legs : 5/5 Deep tendon reflexes : Normal Knee Jerk. Normal Ankle Jerk . Vertebral body tenderness to palpation over L5 Guzman Test positive BL L5-S1 Lumbar Facet Loading Test positive over BL L4-L5, L5-S1 Straight Leg Raise: positive at 30 degrees right side < left side Gaenslen's Test positive Sacral spine : Severe tenderness over the Sacroiliac joint: right side / left side Range of motion: Flexion of the lumbar spine <60 degrees Range of motion: Extension of the lumbar spine <20 degrees Gaenslen's Test positive right side / left side Dominga test: positive right side / left side Thigh Thrust Test positive right side / left side Sacral Thrust Test positive right side / left side Imaging: X ray thoracic spine from 07/27/24 reviewed Assessment and plan: Chronic thoracic & LBP secondary to radiculopathy, spondylosis with facet arthropathy without myelopathy Recommendation of MRI non contrast thoracic spine M54.14, PT integrated w traction x 6 wks . Risks, benefits of procedure discussed and pt verbalized understanding. Protocol for discontinuation/ continuation of medications robert procedure discussed. All questions answered. I have spent less than 30 minutes on patient care today. Dr Muñoz was available by phone for the evaluation of this patient. The time was used to review the medical records including relevant urine studies and Prescription history (MAPs), review of the available imaging, evaluation and examination of the patient, coordination of care with the medical staff and if applicable referring physicians, as well as creation of the medical record PQRS Narrative: Narcotic Agreement Date Signed 07/27/24 Hx Alcohol Use (MH) Yes: Occassional Home Medications: Ambulatory Orders Celecoxib [CeleBREX] 200 mg PO BID PRN 30 Days #60 cap 10/09/22 tiZANidine [Zanaflex] 4 mg PO TID PRN 30 Days #90 tab 07/27/24 Controlled Substance Measures - Controlled Substance Measures Is patient prescribed a controlled substance at discharge?: No
== END ==
LOC: PNWHC3 08:54
PROVIDERS: ATTEND Specialist
DX: M47.814 Spondylosis without myelopathy or radiculopathy, thoracic region (principal)
CPT/HCPCS: 99211

== ENCOUNTER → 2024-10-12 | Outpatient (CLI) | payer BC ==
--- NOTE | 2024-10-13 07:00 | MR ---
EXAMINATION TYPE: MR thoracic spine wo con DATE OF EXAM: 10/12/2024 COMPARISON: Thoracic spine July 27, 2024 HISTORY: pain TECHNIQUE: Multiplanar, multisequence imaging of thoracic spine is performed without contrast FINDINGS: Localizer shows grade one retrolisthesis C5 on C6 along with disc herniation causing most p rominent spinal canal effacement or spinal canal stenosis on sagittal image 6. This can be better meghan luated with dedicated cervical spine MRI if this is not known finding . Spinal cord shows normal cour se, caliber, and signal as it courses the thoracic spine. Vertebral body heights and alignment are s atisfactory. There is osseous hemangioma involving the posterior T8 vertebra sagittal image 9. There are posterior disc herniations effacing anterior thecal sac at T2-T3, T5-T6, and most prominent at th e T6-T7 levels on sagittal image 8. Review of the axial images confirm a disc protrusion effacing the anterior thecal sac up to the ventr al surface of the spinal cord greater on the left which is flattened on image 25 series 901 at the C5 -C6 level. Axial images confirm most prominent left paracentral disc protrusion at T6-T7 level on image 3 series 901 effacing the anterolateral thecal sac of the ventral surface of the spinal cord which is slightl y flattened. No abnormal cord signal. There is additional small right paracentral disc protrusion effacing right anterolateral thecal sac a xial image 14 at the T8-T9 level. No additional significant disc herniations are identified. IMPRESSION: Multilevel degenerative change in the thoracic spine as detailed above. Most prominent fi ndings are noted at the C5-C6 level as detailed above. Correlate clinically. [facility], , 10/13/2024 6:57 AM
== END | disposition home or self-care (01) ==
LOC: RADMRIMAIN 11:11
PROVIDERS: ATTEND Specialist
DX: M47.24 Other spondylosis with radiculopathy, thoracic region (principal)
CPT/HCPCS: 72146

== ENCOUNTER → 2024-10-19 | Outpatient (CLI) | payer BC ==
[2024-10-19 11:09] VITALS: BP 124/85; PULSE 60; RESP 16; TEMP 97.3
--- NOTE | 2024-10-19 15:41 | P.PAINPG ---
Objective - Vital Signs Vital signs: Intake & Output 10/18/24 10/19/24 10/19/24 18:59 06:59 18:59 Weight 99.79 kg PQRS Measure Charge Sheet Comment: A 59 yr old male w at side with a history of severe and chronic thoracic and lumbar > 2 yrs secondary to radiculopathy, spondylosis with facet arthropathy without myelopathy presents today for evaluation. Pt underwent a BL RFA L4-L5, L5-S1 on Feb 15 where he experienced 80% pain relief x 6 mo s/p procedure. Pain level is provoked at 6 /10 in intensity, constant, localized in the lumbar spine, predominantly axial, achy in character without shooting pain. Pain is provoked by laying supine or periods > 20 min. Pain is alleviated with injections, PT x 6 wks (thoracic and lumbar) at home via online video, chiropractic treatments semi annually as needed, physician guided home stretches daily since 2020 (thoracic and lumbar), heat, medications, topical, injections, repositioning and rest. Interventional pain procedures completed include BL RFA L3-L5 x3 (01/06, 07/09, 03/09), Lumbar TPIs, RUCHI L5-S1 x4, BL TFESI L5-S1 x1 (Apr 2024) Patient is currently on Celebrex Patient denies any side effects of the medication(s), denies excessive drowsiness or sleepiness, denies suicidal ideation and reports that the current pain medication is helping to control the pain and improve activities of daily living. Patient denies any motor or sensory deficits. Patient denies any fever or night sweats, denies any change in the bowel movements or urination. Physical Examination: -Constitutional: Cooperative. Not in acute distress . - Neurologic: Cranial nerve II to XII intact. No focal neurological deficits. - Psychatric: Alert & oriented x 3. Matching mood & appropriate affect. Judgment and insight intact. - Musculoskeletal: Cervical spine: Muscle bulk/ tone/ strength in the bilateral upper extremities normal Vertebral body tenderness to palpation over Spurling test positive Distraction test positive Facet loading test positive TTP Thoracic spine Muscle bulk / tone/ strength in the bilateral paraspinal muscles normal Vertebral body tender to palpation over Facet loading test positive TTP Taut bands w twitch response over L T4-T12 Lumbar spine: Motor bulk/ tone/ strength lower extremities , thigh and legs : 5/5 Deep tendon reflexes : Normal Knee Jerk. Normal Ankle Jerk . Vertebral body tenderness to palpation over L5 Guzman Test positive BL L5-S1 Lumbar Facet Loading Test positive over BL L4-L5, L5-S1 Straight Leg Raise: positive at 30 degrees right side < left side Gaenslen's Test positive Sacral spine : Severe tenderness over the Sacroiliac joint: right side / left side Range of motion: Flexion of the lumbar spine <60 degrees Range of motion: Extension of the lumbar spine <20 degrees Gaenslen's Test positive right side / left side Dominga test: positive right side / left side Thigh Thrust Test positive right side / left side Sacral Thrust Test positive right side / left side Imaging: X ray thoracic spine from 07/27/24 reviewed MRI non contrast thoracic spine from 10/12/24 reviewed Assessment and plan: Chronic thoracic & LBP secondary to T8-T9 radiculopathy, spondylosis with facet arthropathy without myelopathy Recommendation of BL RFA L4-L5, L5-S1. Risks, benefits of procedure discussed and pt verbalized understanding. Protocol for discontinuation/ continuation of medications robert procedure discussed. Minimal anesthesia including Fentanyl and Versed if clinically indicated. All questions answered. I have spent less than 30 minutes on patient care today. Dr Muñoz was available by phone for the evaluation of this patient. The time was used to review the medical records including relevant urine studies and Prescription history (MAPs), review of the available imaging, evaluation and examination of the patient, coordination of care with the medical staff and if applicable referring physicians, as well as creation of the medical record PQRS Narrative: Narcotic Agreement Date Signed 08/18/24 Hx Alcohol Use (MH) Yes: Occassional Home Medications: Ambulatory Orders Celecoxib [CeleBREX] 200 mg PO BID PRN 30 Days #60 cap 10/09/22 tiZANidine [Zanaflex] 4 mg PO TID PRN 30 Days #90 tab 07/27/24 Controlled Substance Measures - Controlled Substance Measures Is patient prescribed a controlled substance at discharge?: No
== END ==
LOC: PNWHC3 10:23
PROVIDERS: ATTEND Anesthesiology
DX: M47.24 Other spondylosis with radiculopathy, thoracic region (principal); G89.29 Other chronic pain
CPT/HCPCS: 99211

== ENCOUNTER 2024-11-08 08:40 | Day surgery (SDC) | payer BC ==
[2024-11-04 09:59] VITALS: BMI 32.3
[2024-11-08] MEDS: IV FLUID CONTINUATION 1,000 ML IV ONE ×2 (08:54→10:14)
[2024-11-08 09:03] VITALS: TEMP 97.3
[2024-11-08] MEDS ORDERED: fentaNYL (PF) 50 MCG/ML 2 ML AMP ONE (09:43)
[2024-11-08] MEDS ORDERED: MIDAZOLAM 2 MG/2 ML VIAL ONE (09:43)
[2024-11-08] MEDS ORDERED: ROPIVACAINE 5MG/ML 20ML VIAL ONE (09:43)
[2024-11-08] MEDS ORDERED: methylPREDNISolone ACETATE 40 MG/ML 1 ML VIAL ONE (09:43)
--- NOTE | 2024-11-08 10:11 | P.PCN ---
Date of Procedure: 11/08/24 Procedure(s) Performed: PREOPERATIVE DIAGNOSIS: 1-Lumbar Spondylosis with Facet Arthropathy without myelopathy. 2- Lumber degenerative disc disease. POSTOPERATIVE DIAGNOSIS: 1- Lumbar Spondylosis with Facet Arthropathy without myelopathy. 2- Lumber degenerative disc disease. PROCEDURES : Bilateral Radiofrequency thermocoagulation, L3 , L4 , and L5 medial branch, with fluoroscopic guidance (fluoroscopy images available in the radiology department) ( to denervate the facet joint at bilateral L4-5 ,and L5-S1 levels ). ANESTHESIA: Moderate sedation with Versed 2 mg and fentanyl 200 g, (sedation start at 09:43 ,ended at 10:07 ) EBL: Minimal PROCEDURE INDICATION: The patient with low back pain secondary to lumbar facet arthropathy who had more than 50% relief of her pain with previous diagnostic lumbar medial branch block with bupivacaine. PROCEDURE DESCRIPTION / TECHNIQUE: The patient was seen and identified in the preoperative area. Risks, benefits, complications, including but not limited to risk of infection ,bleeding , allergic reactions to the medications and no complete pain releife , and alternatives were discussed with the patient, the patient agreed to proceed with the procedure and signed the consent. IV was started. Vital signs remained stable throughout the procedure. Patient was taken to the OR and time out was completed. The patient was placed in the prone position on the procedure table. The lumber area was prepped and draped in the usual sterile fashion. . Vital signs were closely monitored during the procedure .IV sedation was used during the procedure to decrease patients anxiety. Using AP and then oblique fluoroscopy, the ``eye of the Paulino dog corresponding to the connection between the superior and transverse articular processes of right L3, L4, and L5 were identified, marked, and localized with 1% lidocaine. Subsequently, a 18 guage ( Venom ) 150-mm radiofrequency cannula with a 10-mm active tip was advanced guided by fluoroscopy to each of the``eyes of the Paulino dog at right L3, L4, and L5. Each site then underwent sensory testing at 50 Hz and 0 to 1 volt and motor testing at 2.5 Hz and 0 to 3 volt with local stimulation, but no radicular symptoms down the legs. Thereafter each sites underwent radiofrequency thermocoagulation at 80 degrees celsius for 90 seconds after injecting 0.5 ml of PF Ropivacaine 1ml, then after the thermocoagulation done , 1 ml of the block solution containing Depo-Medrol 20 mg and 3 ml of Ropivacaine 0.5% was injected at the right L3 , L4 , and L5 , levels after negative aspiration of CSF and blood and with no paresthesias. Cannulas were retracted while injecting lidocaine 1% until the needle is out. The same procedure was repeated at the level of Left L3, L4, and L5 levels. At the end of the procedure, the skin was cleansed and bandages were applied. COMPLICATIONS: No acute complications. DISPOSITION / PLANS: The patient was placed in a supine position and transferred to the recovery area in a stable condition for observation and was discharged from the recovery room after meeting discharge criteria. Home discharge instructions given to the patient by the staff. The patient was reexamined prior to discharge. The patient will schedule a follow up in the clinic in 2-4 weeks.
--- NOTE | 2024-11-08 10:21 | FL ---
EXAMINATION TYPE: FL guided pain mgmt statistic DATE OF EXAM: 11/08/2024 CLINICAL INDICATION: Male, 59 years old with history of PAIN; [facility], TECHNIQUE: Fluoroscopy. COMPARISON: None. FINDINGS: Fluoroscopic guidance was provided during pain relief procedure performed by Dr. Muñoz . A total of 21.2 seconds of fluoroscopic time was utilized during the procedure and 6 spot images a re acquired. Images acquired shows needle localization at several levels in the lumbar spine bilatera lly. Multilevel degenerative changes are present. Total DAP: 0.1244 mGym2. IMPRESSION: As Above. [facility], , 11/08/2024 10:19 AM
[2024-11-08 10:51] VITALS: BP 106/61; PULSE 75; RESP 18
== END 2024-11-08 10:59 | disposition home or self-care (01) ==
LOC: ORPAIN 08:40
PROVIDERS: ATTEND Specialist
DX: M47.816 Spondylosis without myelopathy or radiculopathy, lumbar region (principal); M51.369 Other intervertebral disc degeneration, lumbar region without mention of lumbar back pain or lower extremity pain
CPT/HCPCS: 64635; 64636; J2250; J3010; J2795; J1010; 99152; 99153

== ENCOUNTER → 2024-11-24 | Outpatient (CLI) | payer BC ==
[2024-11-24 10:52] VITALS: BP 127/81; PULSE 71; RESP 16
--- NOTE | 2024-11-24 15:46 | P.PAINPG ---
PQRS Measure Charge Sheet Comment: A 59 yr old male w at side with a history of severe and chronic thoracic and lumbar > 2 yrs secondary to radiculopathy, spondylosis with facet arthropathy without myelopathy presents today for evaluation s/p BL RFA L4-L5, L5-S1. Pt states he experienced 80% pain relief x 6 mo s/p procedure. Pain level is provoked at 6 /10 in intensity, constant, localized in the lumbar spine, predominantly axial, achy in character without shooting pain. Pain is provoked by walking for periods > 20 min. Pain is alleviated with injections, PT x 6 wks (thoracic and lumbar) at home via online video, chiropractic treatments semi annually as needed, physician guided home stretches daily since 2020 (thoracic and lumbar), heat, medications, topical, injections, repositioning and rest. Interventional pain procedures completed include BL RFA L3-L5 x3 (01/06, 07/09, 03/09, 11/08), Lumbar TPIs, RUCHI L5-S1 x4, BL TFESI L5-S1 x1 (Apr 2024) Patient is currently on Celebrex Patient denies any side effects of the medication(s), denies excessive drowsiness or sleepiness, denies suicidal ideation and reports that the current pain medication is helping to control the pain and improve activities of daily living. Patient denies any motor or sensory deficits. Patient denies any fever or night sweats, denies any change in the bowel movements or urination. Physical Examination: -Constitutional: Cooperative. Not in acute distress . - Neurologic: Cranial nerve II to XII intact. No focal neurological deficits. - Psychatric: Alert & oriented x 3. Matching mood & appropriate affect. Judgment and insight intact. - Musculoskeletal: Cervical spine: Muscle bulk/ tone/ strength in the bilateral upper extremities normal Vertebral body tenderness to palpation over Spurling test positive Distraction test positive Facet loading test positive TTP Thoracic spine Muscle bulk / tone/ strength in the bilateral paraspinal muscles normal Vertebral body tender to palpation over Facet loading test positive TTP Taut bands w twitch response over L T4-T12 Lumbar spine: Motor bulk/ tone/ strength lower extremities , thigh and legs : 5/5 Deep tendon reflexes : Normal Knee Jerk. Normal Ankle Jerk . Vertebral body tenderness to palpation over L5 Guzman Test positive BL L5-S1 Lumbar Facet Loading Test positive over BL L4-L5, L5-S1 Taut bands w twitch response over BL T8- S1 Straight Leg Raise: positive at 30 degrees right side < left side Gaenslen's Test positive Sacral spine : Severe tenderness over the Sacroiliac joint: right side / left side Range of motion: Flexion of the lumbar spine <60 degrees Range of motion: Extension of the lumbar spine <20 degrees Gaenslen's Test positive right side / left side Dominga test: positive right side / left side Thigh Thrust Test positive right side / left side Sacral Thrust Test positive right side / left side Imaging: X ray thoracic spine from 07/27/24 reviewed MRI non contrast thoracic spine from 10/12/24 reviewed Assessment and plan: Chronic thoracic & LBP secondary to T8-T9 radiculopathy, spondylosis with facet arthropathy without myelopathy Recommendation of BL TPIs T8-S1 #2. Risks, benefits of procedure discussed and pt verbalized understanding. Refill Celebrex, Zanaflex, Valiu prn. Use, side effects, adverse reactions, safe storage discussed. All questions ans wered. I have spent less than 30 minutes on patient care today. Dr Muñoz was available by phone for the evaluation of this patient. The time was used to review the medical records including relevant urine studies and Prescription history (MAPs), review of the available imaging, evaluation and examination of the patient, coordination of care with the medical staff and if applicable referring physicians, as well as creation of the medical record PQRS Narrative: Narcotic Agreement Date Signed 08/18/24 Hx Alcohol Use (MH) Yes: Occassional Home Medications: Ambulatory Orders Celecoxib [CeleBREX] 200 mg PO BID PRN 30 Days #60 cap 10/09/22 Controlled Substance Measures - Controlled Substance Measures Is patient prescribed a controlled substance at discharge?: Yes When asked, does pt state using other controlled substances?: No If prescribed controlled substance>3 days was MAPS reviewed?: Prescribed <3 Days
== END ==
LOC: PNWHC3 09:45
PROVIDERS: ATTEND Specialist
DX: M47.24 Other spondylosis with radiculopathy, thoracic region (principal); G89.29 Other chronic pain
CPT/HCPCS: 99211

== ENCOUNTER 2024-12-06 12:28 | Day surgery (SDC) | payer BC ==
[2024-12-02 11:52] VITALS: BMI 31.5
[2024-12-06] MEDS ORDERED: LACTATED RINGERS 1,000 ML IV SCH (13:27)
[2024-12-06 13:31] VITALS: TEMP 97.8
[2024-12-06] MEDS ORDERED: ROPIVACAINE 5MG/ML 20ML VIAL ONE (14:21)
[2024-12-06] MEDS ORDERED: methylPREDNISolone ACETATE 80 MG/ML 1 ML VIAL ONE (14:21)
--- NOTE | 2024-12-06 14:30 | P.PCN ---
Date of Procedure: 12/06/24 Procedure(s) Performed: Procedure= trigger point injections Thoracic ,and lumbar paraspinal muscles bilaterally , 6 on the right side from T8 to S1, and 4 on the left side from T12 to S1 Preoperative diagnosis= 1-myofascial pain syndrome Thoracic, and lumbar paraspinal muscles 2-lumbar degenerative disc disease 3-lumbar spondylosis with facet arthropathy Postoperative diagnosis=Same as preop Diagnosis . Complication = none Condition= stable Anesthesia= none Indication for the procedure= patient complaining of mid low back pain , examination was positive for multiple trigger point in the Thoracic ,and lumbar paraspinal muscles bilaterally and patient diagnosed with myofascial pain syndrome and is here to have trigger point injections Description of the procedure= procedure risk and benefits discussed with the patient, including but not limited, risk of infection and bleeding, and ALLERGIC reaction to the medication and not complete pain relief and patient agreed with the preceding patient taken to the operating room, placed in sitting position or standard monitors applied to the patient then after induction of anesthesia back prepped with chlorhexidine 3 times , then under sterile technique each of the trigger point that was marked in the preop holding area 6 on the right side Thoracic ,and lumbar paraspinal muscles and 4 on the left side Thoracic lumbar paraspinal muscles each one of them injected with the 2 mL of the mixture of ropivacaine 0.5% 20 ML mixed with 80 mg of Depo-Medrol and 2 mL of the mixture injected at each trigger point after negative aspiration, using 25-gauge needle, injection done after negative aspiration under was no paresthesia during the injection patient tolerated the procedure well without any complications and he will follow up in the pain clinic in a few weeks
[2024-12-06 14:39] VITALS: RESP 16
[2024-12-06 14:45] VITALS: BP 132/80; PULSE 70
== END 2024-12-06 14:45 | disposition home or self-care (01) ==
LOC: ORPAIN 12:28
PROVIDERS: ATTEND Specialist
DX: M79.18 Myalgia, other site (principal); M47.816 Spondylosis without myelopathy or radiculopathy, lumbar region; M51.369 Other intervertebral disc degeneration, lumbar region without mention of lumbar back pain or lower extremity pain; Z79.1 Long term (current) use of non-steroidal anti-inflammatories (NSAID)
CPT/HCPCS: 20553; J2795; J1010

== ENCOUNTER → 2024-12-28 | Outpatient (CLI) | payer BC ==
[2024-12-28 08:50] VITALS: BP 121/79; PULSE 57; RESP 17
--- NOTE | 2024-12-28 15:51 | P.PAINPG ---
PQRS Measure Charge Sheet Comment: A 59 yr old male with a history of severe and chronic thoracic and lumbar > 2 yrs secondary to radiculopathy, spondylosis with facet arthropathy without myelopathy presents today for evaluation s/p BL TPIs T8-S1 #2. Pt states he experienced >50% pain relief x 1-2 wks s/p procedure. Pain level is provoked at 7 /10 in intensity, intermittent, localized in the lumbar spine, predominantly axial, achy in character w occasional shooting pain up the spine and to the LEs. Pain is provoked by over activity. Pain is alleviated with injections, PT x 6 wks (thoracic and lumbar) at home via online video, chiropractic treatments semi annually as needed, physician guided home stretches daily since 2020 (thoracic a nd lumbar), heat, medications, topical, injections, repositioning and rest. Discussed MRI findings of mild to moderate spinal stenosis within L3-L4 & L4-L5, that that condition will refer pain up the spinal column and that RUCHI effectiveness is limited due to the narrow nature of the spinal column. Asked pt to follow up w Dr Keating, his surgeon, but pt is not interested at this time. Discussed possible exploration of SCS Trial but pt is also disinterested. He stated he has several months of good pain relief w RUCHI and would like that repeated. Interventional pain procedures completed include BL RFA L3-L5 x3 (01/06, 07/09, 03/09, 11/08), Lumbar TPIs, RUCHI L5-S1 x4, BL TFESI L5-S1 x1 (05/10), BL TPIs T8-S1 x1 (12/09) Patient is currently on Celebrex Patient denies any side effects of the medication(s), denies excessive drowsiness or sleepiness, denies suicidal ideation and reports that the current pain medication is helping to control the pain and improve activities of daily living. Patient denies any motor or sensory deficits. Patient denies any fever or night sweats, denies any change in the bowel movements or urination. Physical Examination: -Constitutional: Cooperative. Not in acute distress . - Neurologic: Cranial nerve II to XII intact. No focal neurological deficits. - Psychatric: Alert & oriented x 3. Matching mood & appropriate affect. Judgment and insight intact. - Musculoskeletal: Cervical spine: Muscle bulk/ tone/ strength in the bilateral upper extremities normal Vertebral body tenderness to palpation over Spurling test positive Distraction test positive Facet loading test positive TTP Thoracic spine Muscle bulk / tone/ strength in the bilateral paraspinal muscles normal Vertebral body tender to palpation over Facet loading test positive TTP Taut bands w twitch response over L T4-T12 Lumbar spine: Motor bulk/ tone/ strength lower extremities , thigh and legs : 5/5 Deep tendon reflexes : Normal Knee Jerk. Normal Ankle Jerk . Vertebral body tenderness to palpation over L5 Guzman Test positive BL L5-S1 Lumbar Facet Loading Test positive over BL L4-L5, L5-S1 Taut bands w twitch response over BL T8- S1 Straight Leg Raise: positive at 30 degrees right side < left side Gaenslen's Test positive Sacral spine : Severe tenderness over the Sacroiliac joint: right side / left side Range of motion: Flexion of the lumbar spine <60 degrees Range of motion: Extension of the lumbar spine <20 degrees Gaenslen's Test positive right side / left side Dominga test: positive right side / left side Thigh Thrust Test positive right side / left side Sacral Thrust Test positive right side / left side Imaging: X ray thoracic spine from 07/27/24 reviewed MRI non contrast thoracic spine from 10/12/24 reviewed MRI non contrast lumbar spine from 07/08/21 reviewed Assessment and plan: Chronic thoracic & LBP secondary to T8-T9 radiculopathy, spondylosis with facet arthropathy without myelopathy Recommendation of RUCHI L5-S1 #4. Risks, benefits of procedure discussed and pt verbalized understanding. Protocol of discontinuation/continuation of medication surrounding procedure discussed. All questions answered. I have spent less than 30 minutes on patient care today. Dr Muñoz was available by phone for the evaluation of this patient. The time was used to review the medical records including relevant urine studies and Prescription history (MAPs), review of the available imaging, evaluation and examination of the patient, coordination of care with the medical staff and if applicable referring physicians, as well as creation of the medical record PQRS Narrative: Narcotic Agreement Date Signed 08/18/24 Hx Alcohol Use (MH) Yes: Occassional Home Medications: Ambulatory Orders Celecoxib [CeleBREX] 200 mg PO BID PRN 30 Days #60 cap 11/24/24 tiZANidine [Zanaflex] 4 mg PO BID PRN 30 Days #60 tab 11/24/24 Controlled Substance Measures - Controlled Substance Measures Is patient prescribed a controlled substance at discharge?: No
== END ==
LOC: PNWHC3 08:30
PROVIDERS: ATTEND Specialist
DX: M47.24 Other spondylosis with radiculopathy, thoracic region (principal); M54.50 Low back pain, unspecified; G89.29 Other chronic pain
CPT/HCPCS: 99212

== ENCOUNTER 2025-01-31 06:22 | Day surgery (SDC) | payer BC ==
[2025-01-27 15:27] VITALS: BMI 31.5
[2025-01-31 06:36] VITALS: RESP 16; TEMP 97.7
[2025-01-31] MEDS ORDERED: methylPREDNISolone ACETATE 80 MG/ML 1 ML VIAL ONE (07:01)
[2025-01-31] MEDS ORDERED: IOPAMIDOL M300 15ML VIAL ONE (07:01)
[2025-01-31 07:34] VITALS: BP 111/97; PULSE 62
--- NOTE | 2025-01-31 08:36 | FL ---
EXAMINATION TYPE: FL guided pain mgmt statistic DATE OF EXAM: 01/31/2025 7:22 AM COMPARISON: Pre Operative Images if available both CT/MRI or plain film CLINICAL INDICATION: Male, 59 years old with history of LESI; TECHNIQUE: FL guided pain mgmt statistic, multiple fluoroscopic images provided for procedure. DAP: 0.62883 mGym2 Gycm2 uGym2 cGycm2 or equivalent. FINDINGS: Fluoroscopic images during injection for pain management demonstrate multilevel degeneration changes throughout the spine. No evidence for fracture. No acute process identified. IMPRESSION: 1. No evidence for intraoperative complication. 2. Please see the operative/procedural note for further details. [facility], , 01/31/2025 8:33 AM
== END 2025-01-31 07:43 | disposition home or self-care (01) ==
LOC: ORPAIN 06:22
PROVIDERS: ATTEND Pain Medicine Interventional Pain Medicine
DX: M51.369 Other intervertebral disc degeneration, lumbar region without mention of lumbar back pain or lower extremity pain (principal); M47.816 Spondylosis without myelopathy or radiculopathy, lumbar region; M48.061 Spinal stenosis, lumbar region without neurogenic claudication
CPT/HCPCS: 62323; Q9967; J1010

== ENCOUNTER → 2025-02-15 | Outpatient (CLI) | payer BC ==
[2025-02-15 10:21] VITALS: BP 122/81; PULSE 68; RESP 16; TEMP 97.2
--- NOTE | 2025-02-15 16:11 | P.PAINPG ---
Objective - Vital Signs Vital signs: Vital Signs Temp 97.2 F L 02/15/25 10:18 Pulse 68 02/15/25 10:18 Resp 16 02/15/25 10:18 BP 122/81 02/15/25 10:18 Pulse Ox 94 L 02/15/25 10:18 FiO2 Intake & Output 02/14/25 02/15/25 02/15/25 18:59 06:59 18:59 Weight 99.79 kg PQRS Measure Charge Sheet Mode of Arrival: Ambulatory Comment: A 59 yr old male with a history of severe and chronic thoracic and lumbar > 2 yrs secondary to radiculopathy, spondylosis with facet arthropathy without myelopathy presents today for evaluation s/p RUCHI L5-S1 #4. Pt states he experienced 70% pain relief x 2 wks s/p procedure. Pain level is provoked at 4-6 /10 in intensity, intermittent, localized in the lumbar spine, predominantly axial, achy in character w occasional shooting pain to the LEs. Pain is provoked by standing for periods > 20 min. Pain is alleviated with injections, PT x 6 wks (thoracic and lumbar) at home via online video, chiropractic treatments semi annually as needed, physician guided home stretches daily since 2020 (thoracic and lumbar), heat, medications, topical, injections, repositioning and rest. Previously, discussed MRI findings of mild to moderate spinal stenosis within L3-L4 & L4-L5, that that condition will refer pain up the spinal column and that RUCHI effectiveness is limited due to the narrow nature of the spinal column. Asked pt to follow up w Dr Keating, his surgeon, but pt is not interested at this time. Discussed possible exploration of SCS Trial but pt is also disinterested. Interventional pain procedures completed include BL RFA L3-L5 x3 (01/06, 07/09, 03/09, 11/08), Lumbar TPIs, RUCHI L5-S1 x5 (02/08), BL TFESI L5-S1 x1 (05/10), BL TPIs T8-S1 x1 (12/09) Patient is currently on Celebrex Patient denies any side effects of the medication(s), denies excessive drowsiness or sleepiness, denies suicidal ideation and reports that the current pain medication is helping to control the pain and improve activities of daily living. Patient denies any motor or sensory deficits. Patient denies any fever or night sweats, denies any change in the bowel movements or urination. Physical Examination: -Constitutional: Cooperative. Not in acute distress . - Neurologic: Cranial nerve II to XII intact. No focal neurological deficits. - Psychatric: Alert & oriented x 3. Matching mood & appropriate affect. Judgment and insight intact. - Musculoskeletal: Cervical spine: Muscle bulk/ tone/ strength in the bilateral upper extremities normal Vertebral body tenderness to palpation over Spurling test positive Distraction test positive Facet loading test positive TTP Thoracic spine Muscle bulk / tone/ strength in the bilateral paraspinal muscles normal Vertebral body tender to palpation over Facet loading test positive TTP Taut bands w twitch response over L T4-T12 Lumbar spine: Motor bulk/ tone/ strength lower extremities , thigh and legs : 5/5 Deep tendon reflexes : Normal Knee Jerk. Normal Ankle Jerk . Vertebral body tenderness to palpation over L5 Guzman Test positive BL L5-S1 Lumbar Facet Loading Test positive over BL L4-L5, L5-S1 Taut bands w twitch response over BL T8- S1 Straight Leg Raise: positive at 30 degrees right side < left side Gaenslen's Test positive Sacral spine : Severe tenderness over the Sacroiliac joint: right side / left side Range of motion: Flexion of the lumbar spine <60 degrees Range of motion: Extension of the lumbar spine <20 degrees Gaenslen's Test positive right side / left side Dominga test: positive right side / left side Thigh Thrust Test positive right side / left side Sacral Thrust Test positive right side / left side Imaging: X ray thoracic spine from 07/27/24 reviewed MRI non contrast thoracic spine from 10/12/24 reviewed MRI non contrast lumbar spine from 07/08/21 reviewed Assessment and plan: Chronic thoracic & LBP secondary to T8-T9 radiculopathy, spondylosis with facet arthropathy without myelopathy Will manage residual pain and may RTC on an as needed basis. All questions answered. I have spent less than 30 minutes on patient care today. Dr Muñoz was available by phone for the evaluation of this patient. The time was used to review the medical records including relevant urine studies and Prescription history (MAPs), review of the available imaging, evaluation and examination of the patient, coordination of care with the medical staff and if applicable referring physicians, as well as creation of the medical record - Pain Location Bilateral Lower Back Non-Pharmacological Interventions: Chiropractic Treatment, Heat, Inactivity, Physical Therapy, Position/Reposition, Sitting, Standing Pharmacological Interventions: Block, Epidural, PRN Medication PQRS Narrative: Narcotic Agreement Date Signed 08/18/24 Blood Pressure 122/81 Pain Intensity [Bilateral 6 Lower Back] Scale Used Numeric (1 - 10) Hx Alcohol Use (MH) Yes: Occassional Home Medications: Ambulatory Orders Celecoxib [CeleBREX] 200 mg PO BID PRN 30 Days #60 cap 11/24/24 tiZANidine [Zanaflex] 4 mg PO BID PRN 30 Days #60 tab 11/24/24 Controlled Substance Measures - Controlled Substance Measures Is patient prescribed a controlled substance at discharge?: No
== END ==
LOC: PNWHC3 10:04
PROVIDERS: ATTEND Specialist
DX: M47.25 Other spondylosis with radiculopathy, thoracolumbar region (principal); G89.28 Other chronic postprocedural pain
CPT/HCPCS: 99211